=== PATIENT | female | born 1935 | race Caucasian/White ===

== ENCOUNTER → 2019-12-19 08:20 | Outpatient (REF) | payer MEDICARE, SELFPAY ==
--- NOTE | 2019-12-19 | NM_ITS ---
Lexiscan Myocardial perfusion study Indication: Chest pressure, shortness of breath, coronary disease, assess for ischemia Technique: The patient was brought in for a Lexiscan perfusion study on 12/19/2019 and was injected 0.4 mg of Lexiscan intravenously. Within a minute of this injection 30 mCi of sestamibi was given intravenously. Images were obtained using the SPECT gamma camera interlaced with the gating device. Images were obtained in supine position. Resting perfusion study was performed on 12/20/2019. Patient was administered 30 mCi of sestamibi intravenously at rest. Images were then obtained in supine position. Total DLP 67mGy-cm. Images were processed with the software and compared side to side in short axis, horizontal long axis and vertical long axis views. Findings: Raw acquisition was reviewed. The stress perfusion study showed very small, mild perfusion defect in the mid anterior wall. Otherwise no significant perfusion abnormality. The mid anterior defect persists during CT attenuation correction. The gated study shows normal LV systolic function with calculated LVEF of 68%. LV cavity is normal in size. The gated study shows normal wall thickening and contraction of segments. Resting study shows no significant perfusion abnormality. Gating at rest reveals normal wall motion with ejection fraction at 68%. The findings are consistent with mild mid anterior perfusion defect that could be from a small area of ischemia. Impression: 1. Myocardial perfusion imaging study shows very mild, small area of reversible perfusion defect in the mid anterior wall that could be from ischemia. Could also be artifactual. Appears to be a low risk finding. 2. Gated LVEF is normal. 3. Transient ischemic dilatation not present. EKG component of the test reported separately.
--- NOTE | 2019-12-19 08:30 | CA_ITS ---
Transthoracic Echocardiogram Patient (Last, First, Middle): Izabel Ruelas Maureen Gender: Female Date of : 1935 Age: 84 Procedure Date: 12/19/2019 Procedure Type: Transthoracic Echocardiogram Location: OP Height: 157.48 cm Weight: 81.19 kg BSA: 1.82 m2 Heart Rate: bpm BP: 122 / 70 mmHg [employer]: Referring MD: Sam Guillen MD Symptoms: afib, cad, sob, Study Quality: Fair ECG Rhythm: Atrial Fibrillation Conclusions: - The left ventricular systolic function is normal. The visually estimated ejection fraction is between 55-60%. - There is moderate calcification of the aortic valve. There is mild aortic valve stenosis. There is mild aortic valve regurgitation. - There is moderate mitral annular calcification. There is mild mitral valve regurgitation. - Top normal ascending aortic size at 3.9 cm. Findings Left Ventricle Normal left ventricular cavity size. There is mildly increased left ventricular wall thickness. The left ventricular systolic function is normal. The visually estimated ejection fraction is between 55-60%. There is no evidence of regional wall motion abnormalities. Diastolic function is indeterminate on the basis of available data. Right Ventricle Normal right ventricular cavity size and systolic function. Atria The left atrium is moderately dilated. The right atrium is moderately dilated. Aortic Valve There is moderate calcification of the aortic valve. There is mild aortic valve stenosis. The peak aortic velocity is 1.83 m/s with a calculated peak gradient of 13 mmHg. The mean gradient is 7 mmHg. The aortic valve area is 1.51 cm2. There is mild aortic valve regurgitation. Mitral Valve There is moderate mitral annular calcification. There is mild mitral valve regurgitation. There is no mitral valve stenosis. Pulmonic Valve The pulmonic valve was not well visualized. There is mild pulmonic valve regurgitation. Tricuspid Valve Normal tricuspid valve structure. There is mild tricuspid valve regurgitation. The pulmonary artery systolic pressure is normal. Great Vessels Top normal ascending aortic size at 3.9 cm. Venous The inferior vena cava is mildly dilated and collapses greater than 50% with inspiration. Pericardium/Pleural There is a trivial pericardial effusion. Prior Study Comparison No significant change compared to prior study dated: 04/27/2018. Measurements 2D Linear Measurements IVSd: 1.06 0.6-0.9/0.6-1.0 cm LVIDd: 4.52 3.9-5.3/4.2-5.9 cm LVIDd Index: 2.48 2.4-3.2/2.2-3.1 cm/m2 LVIDs: 2.73 2.0-3.6 cm LVPWd: 1.10 0.7-1.1 cm Ao Root: 3.30 2.1-3.5 cm LA Diam: 4.00 2.7-3.8/3.0-4.0 cm LAIDs Index: 2.20 1.5-2.3 cm/m2 LV Mass: 213.96 67-162/88-224 g LV Mass Index: 117.56 43-95/49-115 g/m2 LVOT Diam: 2.10 3.0+(-)1.3 cm Mitral Valve MV Pk E: 0.99 MV Decel Time: 158.00 E'Lateral: 6.67 E'Medial: 6.58 E/E' Med: 15.00 E/E' Lat: 14.80 PHT: 46.00 MVA PHT: 4.78 Decel [place]: 6.25 Aortic Valve AoV Pk Alexey: 1.83 AoV Mn Alexey: 1.23 AoV VTI: 0.42 AoV Pk Grad: 13.00 Aov Mn Grad: 7.00 BLANK Cont.VTI: 1.51 LVOT LVOT Pk Alexey: 0.75 LVOT Mn Alexey: 0.50 LVOT VTI: 0.19 LVOT Pk Grad: 2.00 LVOT Mn Grad: 1.00 LVOT Diam: 2.10 LVOT Area: 3.46 Diastolic Function MV Pk E: 0.99 E'Medial: 6.58 E/E' Med: 15.00 E' Laterial: 6.67 E/E' Lat: 14.80 Tricuspid Valve TR Pk Alexey: 2.39 TR Pk Grad: 23.00 Great Vessels Aorta Ao Root-2D: 3.30 2.0-3.7 cm Ao Asc: 3.90 2.1-3.4 cm Pulmonary Valve PV Pk Alexey: 1.00 Peak PV Grad: 4.00 Updated in Other Vendor System with Status of Final Farhat Ortega MD electronically signed on 12/20/2019 12:03:08 PM with status of Final
--- NOTE | 2019-12-19 09:30 | CA_ITS ---
Acquisition Time: 2019-12-19 09:41:52 Total Exercise Time: 00:02:00 Test Indications: I25.10 CAD W/O ANGINA, Z95.5 ST Medications: SYNTHROID LIPITOR DIOVAN ATENOLOL AMLODIPINE ELIQUIS Protocol: LEXISCAN Max HR: 171 BPM 126% of Pred: 135 BPM Max BP: 136/078 mmHG Max Work Load: 1.0 METS Pharmacological stress test using Lexiscan while sitting. pt tolerated well, Denies any anginal sx. Some SOB after Brandie, resoilves in recovery. EKG with a-fib, occ. PVC's. Non-diagnostic for ischemia. Nuclear images to follow. Normotensive response to test. Test reviewed with Dr Ortega Referred By: Sam Guillen Overread By: Libra Ramos
== END ==
LOC: HO.CARD 08:20
PROVIDERS: Visit Provider Internal Medicine Cardiovascular Disease
DX: I25.10 Atherosclerotic heart disease of native coronary artery without angina pectoris (principal); I10 Essential (primary) hypertension; R06.02 Shortness of breath; R07.89 Other chest pain; Z95.5 Presence of coronary angioplasty implant and graft
CPT/HCPCS: 78452; 93017; 93306; A9500; J2785

== ENCOUNTER → 2020-01-08 09:00 | Outpatient (BNVA) | payer MEDICARE, SELFPAY | PROVIDERS: PCP Internal Medicine; Visit Provider Internal Medicine Cardiovascular Disease | DX: I25.10 Atherosclerotic heart disease of native coronary artery without angina pectoris (principal); I48.20 Chronic atrial fibrillation, unspecified; I10 Essential (primary) hypertension; E78.5 Hyperlipidemia, unspecified; Z95.5 Presence of coronary angioplasty implant and graft; Z79.899 Other long term (current) drug therapy; Z98.890 Other specified postprocedural states | CPT/HCPCS: 99212 ==

== ENCOUNTER 2020-05-26 07:56 | Outpatient (REF) | payer MEDICARE, SELFPAY ==
[2020-05-26 10:39] LABS: MANUAL DIFF FLAG NO
[2020-05-26 10:48] LABS: Basophils Percent Auto 0.5 % (0-2); Eosinophils Absolute Auto 0.1 X10*3/uL (0.0-0.4); Eosinophils Percent Auto 1.3 % (0-4); Hemoglobin 12.7 g/dl (12.0-16.0); Imm Gran Abs Auto 0.02 X10*3/uL (0.00-0.03); Imm Gran Pct Auto 0.3 % (0.0-0.4); Lymphocytes Absolute Auto 2.4 X10*3/uL (1.2-4.9); Lymphocytes Percent Auto 31.4 % (20-40); Mean Corpuscular HGB Conc 33.4 g/dl (31.0-35.0); Mean Corpuscular Hemoglobin 31.1 pg (27.0-33.0); Mean Corpuscular Volume 92.9 fL (80-98); Mean Platelet Volume 10.2 fL (9.4-12.3); Monocytes Absolute Auto 0.6 X10*3/uL (0.1-1.2); Monocytes Percent Auto 7.8 % (2-11); Neutrophils Absolute Auto 4.5 X10*3/uL (2.0-8.3); Neutrophils Percent Auto 58.7 % (45-73); Platelet Count 210 X10*3/uL (160-400); Red Blood Count 4.09 X10*6/uL (4.20-5.50); Red Cell Distribution Width 12.8 % (11.0-16.0); White Blood Count 7.6 X10*3/uL (4.8-10.8)
[2020-05-26 11:16] LABS: Glucose Urine UA NEG (NEG); Leukocyte Esterase Urine 1+ (NEG); Nitrite Urine NEG (NEG); PH 7.5 (5.0-8.0); Specific Gravity - Urine 1.015 (1.005-1.025); Urine Blood 1+ (NEG); Urine Ketones NEG (NEG); Urine Protein 2+ MG/DL (NEG-TRACE)
[2020-05-26 11:21] LABS: Appearance Urine CLEAR; Color Urine YELLOW
[2020-05-26 11:27] LABS: Alanine Aminotransferase 17 U/L (0-31); Albumin Level 4.4 g/dL (3.5-5.0); Alkaline Phosphatase 56 U/L (39-117); Anion Gap 12 (12-20); Aspartate Amino Transferase 22 U/L (5-31); Bilirubin Total 0.5 mg/dL (0.0-1.0); Blood Urea Nitrogen 15 mg/dL (9-16); Calcium 9.8 mg/dL (8.4-10.2); Carbon Dioxide 30 mmol/L (22-29); Chloride 99 mmol/L (96-108); Cholesterol 164 mg/dL; Estimated Glomerular Filt Rate 51; Glucose Fasting 106 mg/dL (60-99); HDL Cholesterol 69 mg/dL; LDL Cholesterol Calculated 80 mg/dl; Potassium 3.9 mmol/L (3.3-5.1); Sodium 137 mmol/L (135-145); Triglycerides 75 mg/dL
[2020-05-26 11:37] LABS: TSH reflex Free T4 1.57 uIU/mL (0.32-4.0)
[2020-05-26 12:43] LABS: Bacteria Urine 1+ /LPF; Hyaline Casts Urine 0-2 /LPF; RBC Urine 0 /HPF (0); Renal Epithelial Cells Urine 2+ /LPF; Squamous Epithelial Cell Urine 2+ /LPF
== END 2020-05-26 07:57 | disposition home or self-care (01) ==
LOC: HO.WFDLDS 07:56
PROVIDERS: Visit Provider Internal Medicine
DX: E78.00 Pure hypercholesterolemia, unspecified (principal); E55.9 Vitamin D deficiency, unspecified; E83.52 Hypercalcemia; I10 Essential (primary) hypertension; E03.9 Hypothyroidism, unspecified
CPT/HCPCS: 36415; 80053; 80061; 81001; 81003; 82306; 84443; 85025

== ENCOUNTER 2020-06-12 08:10 | Outpatient (REF) | payer MEDICARE, SELFPAY ==
--- NOTE | ~2020-06-12 | MM_ITS ---
EXAMINATION: BONE DENSITOMETRY CLINICAL INDICATION: Osteoporosis. COMPARISON: Previous BD dated 07/27/2011 and baseline BD dated 10/09/2007. TECHNIQUE: Using a [employer] DXA System (software version: 13.1) manufactured by [employer], dual-energy x-ray absorptiometry was performed of the lumbar spine and left hip. The images are of good technical quality. Summary results are attached. FINDINGS: AP SPINE L1-L4: Current: BMD 0.903 g/cm2, Z-score -0.9, T-score -2.3, osteopenia, 2.6% increase from previous, 15.9% increase from baseline (<5% change is not significant). Prior: BMD 0.880 g/cm2. Baseline: BMD 0.779 g/cm2. LEFT FEMUR, NECK: Current: BMD 0.616 g/cm2, Z-score -0.9, T-score -3.0, osteoporosis. Prior: BMD 0.681 g/cm2. Baseline: BMD 0.692 g/cm2. LEFT FEMUR, TOTAL: Current: BMD 0.664 g/cm2, Z-score -0.8, T-score -2.7, osteoporosis, 20.5% decrease from previous, 18.2% decrease from baseline (<5% change is not significant). Prior: BMD 0.835 g/cm2. Baseline: BMD 0.812 g/cm2. IDENTIFIED RISK FACTORS: Osteoporosis, height loss, history of fracture (adult), thiazide, menopause. HISTORY OF FRACTURE: Wrist, Rib. MEDICATIONS: Vitamin D. MM/XR DEXA axial skeleton IMPRESSION: 1. DIAGNOSIS: Osteoporosis based on the lowest T-score value of -3.0 in the femoral neck applying World Health Organization criteria. 2. 10-YEAR FRACTURE RISK PREDICTION, FRAX: Major osteoporotic fracture (clinical spine, forearm, hip or shoulder) 22.6%. Hip fracture 9.0%. 3. Treatment Recommendations: NOF guidelines recommend consideration for treatment in postmenopausal women and men age 50 and older presenting with the following: -A hip or vertebral (clinical or morphometric) fracture. -T-score less than or equal to -2.5 at the femoral neck or spine after appropriate evaluation to exclude secondary causes. -Low bone mass at the hip or spine and a 10-year fracture probability by FRAX of greater than or equal to 3% for hip fracture or greater than or equal to 20% for major osteoporotic fracture based on the [place] adapted WHO algorithm. 4. Other Recommendations: All treatment decisions require clinical judgment and consideration of individual patient factors, including patient preferences, comorbidities, previous drug use, risk factors not captured in the FRAX model (e.g. frailty, falls, vitamin D deficiency, increased bone turnover, interval significant decline in bone density) and possible under or overestimation of fracture risk by FRAX. Additional medical evaluation for secondary cause of low bone mineral density may be appropriate. FUTURE SCAN RECOMMENDATION: People with diagnosed cases of osteoporosis or at high risk for fracture should have regular bone mineral density tests. For patients eligible for Medicare, routine testing is allowed once every 2 years. The testing frequency can be increased to one year for patients who have rapidly progressing disease, those who are receiving or discontinuing medical therapy to restore bone mass, or have additional risk factors.
== END 2020-06-12 08:11 | disposition home or self-care (01) ==
LOC: HO.MAMMO 08:10
PROVIDERS: Visit Provider Internal Medicine
DX: M81.0 Age-related osteoporosis without current pathological fracture (principal); Z78.0 Asymptomatic menopausal state; Z79.899 Other long term (current) drug therapy
CPT/HCPCS: 77080

== ENCOUNTER → 2020-07-14 09:11 | Outpatient (BNVA) | payer MEDICARE, SELFPAY | PROVIDERS: PCP Internal Medicine; Visit Provider Internal Medicine Cardiovascular Disease | DX: I25.10 Atherosclerotic heart disease of native coronary artery without angina pectoris (principal); I48.20 Chronic atrial fibrillation, unspecified; I35.0 Nonrheumatic aortic (valve) stenosis | CPT/HCPCS: 93005; 99212 ==

== ENCOUNTER → 2020-08-06 09:10 | Outpatient (BNVA) | payer MEDICARE, SELFPAY | PROVIDERS: PCP Internal Medicine; Visit Provider Internal Medicine Cardiovascular Disease | DX: I48.20 Chronic atrial fibrillation, unspecified (principal); I25.10 Atherosclerotic heart disease of native coronary artery without angina pectoris; I10 Essential (primary) hypertension | CPT/HCPCS: 99212 ==

== ENCOUNTER → 2020-08-20 10:10 | Outpatient (REF) | payer MEDICARE, SELFPAY ==
--- NOTE | 2020-08-20 10:50 | ECG_ITS ---
Hook-up date: 2020-08-20 10:41:00 Duration: 28:55:00 Test Indications: chr afib Medications: 84568 QRS complexes 234 Ventricular ectopics which represent <1 % of total QRS comp. * Supraventricular ectopics which represent % of total QRS comp. * Paced QRS complexs which represent % of total QRS comp. VENTRICULAR ECTOPY 226 Isolated 0 Bigeminal Cycles 4 Couplets 0 Runs 0 Beats in Runs * Beats LONGEST at * BPM at :: -- * Beats FASTEST at * BPM at :: -- SUPRAVENTRICULAR ECTOPY * Isolated * Couplets * Runs * Beats in Runs * Beats LONGEST at * BPM at :: -- * Beats FASTEST at * BPM at :: -- HEART RATES 38 MIN at 09:02:16 2020-08-21 63 AVG 125 MAX at 17:02:54 2020-08-20 LONGEST RR 2.3760 secs at 21:47:33 2020-08-20 S-T LEVELS Channel 1 - 128 mm at 10:41:00 2020-08-20 - 128 mm at 10:41:00 2020-08-20 Channel 2 - 128 mm at 10:41:00 2020-08-20 - 128 mm at 10:41:00 2020-08-20 Channel 3 - 128 mm at 03:00:01 -- - 128 mm at 03:00:01 Basic rhythm Atrial fibrillation No significant pauses Frequent slow VR to AF, 41% of time HR < 60 bpm Occasional Premature ventricular complexes Patient did not report any symptoms in the diary Referred By: Sam Guillen Overread By: SAM GUILLEN MD
== END ==
LOC: HO.CARD 10:10
PROVIDERS: PCP Internal Medicine; Referring Provider Internal Medicine; Visit Provider Internal Medicine Cardiovascular Disease
DX: I48.20 Chronic atrial fibrillation, unspecified (principal)
CPT/HCPCS: 93226

== ENCOUNTER 2020-08-21 11:25 | Outpatient (REF) | payer MEDICARE, SELFPAY ==
--- NOTE | ~2020-08-21 | US_ITS ---
EXAMINATION: US THYROID CLINICAL INFORMATION: Thyroid nodule. COMPARISON: None TECHNIQUE: Linear transducer grayscale and color Doppler examination with attention to the region of the thyroid. FINDINGS: SIZE: Measurements of the thyroid lobes and nodules are given in sagittal, anteroposterior and transverse dimensions respectively. Right Thyroid Lobe: 3.7 x 1.5 x 1.4 cm, volume 4.1 mL. Parenchyma: The gland echotexture is homogeneous. Thyroid vascularity is normal. Left Thyroid Lobe: 4.0 x 2.1 x 1.4 cm, volume 6.2 mL. Parenchyma: The gland echotexture is homogeneous. Thyroid vascularity is normal. Isthmus: 0.3 cm in maximum AP dimension. There are multiple bilateral cystic nodules. Estimated total number of nodules greater than or equal to 1 cm: 1. the largest nodules are described as follows: 1. Location: Left inferior. Size: 1.5 x 1.4 x 1.2 cm, volume 1.3 mL. Nodule characteristics: Composition: Cystic(0). ACR TI-RADS total points: 0 ACR TI-RADS category: 1 2. Location: Left mid. Size: 0.53 x 0.41 x 0.59 cm, volume 0.07 mL. Nodule characteristics: Composition: Cystic(0). ACR TI-RADS total points: 0 ACR TI-RADS category: 1 3. Location: Right mid. Size: 0.86 x 0.62 x 1.0 cm, volume 0.28 mL. Nodule characteristics: Composition: Cystic(0). ACR TI-RADS total points: 0 ACR TI-RADS category: 1 4. Location: Right mid. Size: 0.5 x 0.36 x 0.5 cm, volume 0.05 mL. Nodule characteristics: Composition: Cystic(0). ACR TI-RADS total points: 0 ACR TI-RADS category: 1 NODES: No lymphadenopathy is seen in the tissue surrounding the thyroid gland. US/US thyroid IMPRESSION: Multiple bilateral cystic nodules. According to TI-RADS criteria, no ultrasound follow-up indicated. ACR TI-RADS RECOMMENDATION REFERENCE: Ultrasound-guided fine-needle aspiration, followup ultrasound, no further follow up. * TR1 (0 point) and TR 2 (2 points): No FNA or follow up * TR3 (3 points): FNA if more than or equal to 2.5 cm in maximum dimension, followup ultrasound in 1, 3 and 5 years if 1.5 to 2.4 cm in maximum dimension. * TR4 (4-6 points): FNA if more than or equal to 1.5 cm in maximum dimension, followup ultrasound in 1, 2, 3 and 5 years if 1 to 1.4 cm in maximum dimension. * TR5 (more than or equal to 7 points): FNA if more than or equal to 1 cm in maximum dimension, followup ultrasound every year for 5 years if 0.5 to 0.9 cm in maximum dimension. * TR3, TR4 or TR5 nodules that are below the size threshold for follow up receive no follow up.
== END 2020-08-21 11:26 | disposition home or self-care (01) ==
LOC: HO.US 11:25
PROVIDERS: Visit Provider Internal Medicine
DX: E04.1 Nontoxic single thyroid nodule (principal)
CPT/HCPCS: 76536

== ENCOUNTER 2020-08-27 08:11 | Outpatient (REF) | payer MEDICARE, SELFPAY ==
--- NOTE | ~2020-08-27 | FL_ITS ---
EXAMINATION: XR GI SERIES CLINICAL INFORMATION: Esophageal dysphagia COMPARISON: None TECHNIQUE: Routine upper GI air-contrast study was performed in upright and lying position. FINDINGS: Following oral administration of thick barium and effervescent granules there is normal propagation bolus from the oral cavity through the pharynx, esophagus into stomach without any evidence of obstruction, narrowing or stricture. The mucosal pattern of stomach, duodenal bulb and the sweep is normal. In supine lying position there is mild gastroesophageal reflux but no hiatal hernia seen. FLUOROSCOPY TIME: 2.7 minutes DOSE AREA PRODUCT: 45.905 uGy-m2 (microgray-meter squared) FL/FL upper GI series IMPRESSION: Widely patent esophagus without any intrinsic or extrinsic obstruction. Mild gastroesophageal reflux and lying position. No hiatal hernia. The stomach and duodenum is unremarkable
== END 2020-08-27 08:12 | disposition home or self-care (01) ==
LOC: HO.XRAY 08:11
PROVIDERS: Visit Provider Internal Medicine
DX: R13.10 Dysphagia, unspecified (principal)
CPT/HCPCS: 74240

== ENCOUNTER → 2020-11-17 09:20 | Outpatient (BNVA) | payer MEDICARE, SELFPAY | PROVIDERS: PCP Internal Medicine; Visit Provider Internal Medicine Cardiovascular Disease | DX: I48.20 Chronic atrial fibrillation, unspecified (principal); I25.10 Atherosclerotic heart disease of native coronary artery without angina pectoris; R42 Dizziness and giddiness; R06.02 Shortness of breath | CPT/HCPCS: 99212 ==

== ENCOUNTER → 2020-12-16 11:28 | Outpatient (REF) | payer MEDICARE, SELFPAY ==
--- NOTE | 2020-12-16 11:32 | HM_ITS ---
Conclusion: 1. Patient was monitored for total period of 2 days and 23 hours 2. Baseline rhythm was atrial fibrillation with average heart rate of 93 beats per minute with maximum heart rate of up to 170 beats per minute. 3. No significant pauses or bradycardia noted 4. Total of 24.86% of the time, ventricular rate is greater than 100 beats per minute, carton for borderline rate control 5. Total of 2829 PVCs accounting for 0.7% total burden according for rare PVCs 6. No patient reported symptoms MTDD
== END ==
LOC: HO.CARD 11:28
PROVIDERS: PCP Internal Medicine; Visit Provider Internal Medicine Cardiovascular Disease
DX: R00.1 Bradycardia, unspecified (principal); R42 Dizziness and giddiness
CPT/HCPCS: 93242

== ENCOUNTER → 2021-01-14 09:25 | Outpatient (REF) | payer MEDICARE, SELFPAY ==
--- NOTE | 2021-01-14 09:28 | CA_ITS ---
Transthoracic Echocardiogram Patient (Last, First, Middle): Izabel Ruelas Maureen Gender: Female Date of : 1935 Age: 85 Procedure Date: 01/14/2021 Procedure Type: Transthoracic Echocardiogram Location: OP Height: 157.48 cm Weight: 79.83 kg BSA: 1.81 m2 Heart Rate: bpm BP: 122 / 70 mmHg Undercover Operator: Referring MD: Sam Guillen MD Symptoms: I35.0 - Nonrheumatic aortic (valve) stenosis Study Quality: Fair ECG Rhythm: Atrial Fibrillation Conclusions: - The left ventricular systolic function is low normal. The visually estimated ejection fraction is between 50-55%. - Moderate biatrial enlargement. - Overall, suspect [id number] aortic stenosis of low gradient, low flow type. - There is mild mitral valve regurgitation. Findings Left Ventricle Normal left ventricular cavity size. There is mildly increased left ventricular wall thickness. The left ventricular systolic function is low normal. The visually estimated ejection fraction is between 50-55%. There is no evidence of regional wall motion abnormalities. Diastolic function is indeterminate on the basis of available data. Right Ventricle Normal right ventricular cavity size and systolic function. TAPSE 2.2cm. Atria Moderate biatrial enlargement. Aortic Valve There is moderate calcification of the aortic valve. The peak aortic velocity is 1.88 m/s with a calculated peak gradient of 14 mmHg. The mean gradient is 7 mmHg. The aortic valve area is 1.04 cm2. There is mild aortic valve regurgitation. Dimensionless index 0.35. Stroke volume index 22ml. Overall, suspect [id number] aortic stenosis of low gradient, low flow type. Mitral Valve There is mild mitral annular calcification. There is mild mitral valve regurgitation. There is no mitral valve stenosis. Pulmonic Valve The pulmonic valve was not well visualized. There is trace pulmonic valve regurgitation. Tricuspid Valve Normal tricuspid valve structure. There is trace tricuspid valve regurgitation. The pulmonary artery systolic pressure is normal. Great Vessels Top normal ascending aortic size at 3.9 cm. Venous The inferior vena cava is normal in size and collapses greater than 50% with inspiration. Pericardium/Pleural There is no evidence of pericardial effusion. Prior Study Comparison Changes noted compared to prior study dated: 12/19/2019. Possibly progression of aortic stenosis. However, compared to prior study, there is also decrease in stroke volume based on LVOT VTi measurement which leads to smaller calculated aortic valve area. Measurements 2D Linear Measurements IVSd: 1.24 0.6-0.9/0.6-1.0 cm LVIDd: 4.30 3.9-5.3/4.2-5.9 cm LVIDd Index: 2.38 2.4-3.2/2.2-3.1 cm/m2 LVIDs: 2.90 2.0-3.6 cm LVPWd: 1.21 0.7-1.1 cm Ao Root: 3.20 2.1-3.5 cm LA Diam: 4.70 2.7-3.8/3.0-4.0 cm LAIDs Index: 2.60 1.5-2.3 cm/m2 LV Mass: 237.16 67-162/88-224 g LV Mass Index: 131.03 43-95/49-115 g/m2 LVOT Diam: 2.00 3.0+(-)1.3 cm 2D Systolic Function EF 4C: 54.30 >55% EF 2C: 51.50 >55% EF BiP: 54.60 >55% Mitral Valve MV Pk E: 0.99 MV Decel Time: 135.00 E'Lateral: 8.70 E'Medial: 5.98 E/E' Med: 16.60 E/E' Lat: 11.40 PHT: 40.00 MVA PHT: 5.50 Decel [place]: 7.37 Aortic Valve AoV Pk Alexey: 1.88 AoV Mn Alexey: 1.26 AoV VTI: 0.39 AoV Pk Grad: 14.00 Aov Mn Grad: 7.00 BLANK Cont.VTI: 1.04 AI Pk Alexey: 4.51 AI [place]: 3.06 LVOT LVOT Pk Alexey: 0.65 LVOT Mn Alexey: 0.38 LVOT VTI: 0.13 LVOT Pk Grad: 2.00 LVOT Mn Grad: 1.00 LVOT Diam: 2.00 LVOT Area: 3.14 Diastolic Function MV Pk E: 0.99 E'Medial: 5.98 E/E' Med: 16.60 E' Laterial: 8.70 E/E' Lat: 11.40 Right Ventricle TAPSE (mm): 23.00 TVS' Alexey: 11.00 Tricuspid Valve TR Pk Alexey: 2.15 TR Pk Grad: 18.00 Great Vessels Aorta Ao Root-2D: 3.20 2.0-3.7 cm Ao Asc: 3.90 2.1-3.4 cm Pulmonary Valve PV Pk Alexey: 0.73 Peak PV Grad: 2.00 Updated in Other Vendor System with Status of Final Farhat Ortega MD electronically signed on 01/16/2021 10:53:45 AM with status of Final
== END ==
LOC: HO.CARD 09:25
PROVIDERS: PCP Internal Medicine; Visit Provider Internal Medicine Cardiovascular Disease
DX: I35.0 Nonrheumatic aortic (valve) stenosis (principal)
CPT/HCPCS: 93306

== ENCOUNTER → 2021-01-15 08:50 | Outpatient (BNVA) | payer MEDICARE, SELFPAY | PROVIDERS: PCP Internal Medicine; Visit Provider Internal Medicine Cardiovascular Disease | DX: I25.10 Atherosclerotic heart disease of native coronary artery without angina pectoris (principal); I48.20 Chronic atrial fibrillation, unspecified; I35.0 Nonrheumatic aortic (valve) stenosis; R42 Dizziness and giddiness | CPT/HCPCS: Q3014 ==

== ENCOUNTER 2021-06-09 11:49 | Outpatient (REF) | payer MEDICARE, SELFPAY ==
[2021-06-09 11:52] LABS: MANUAL DIFF FLAG NO
[2021-06-09 12:33] LABS: Basophils Percent Auto 0.3 % (0-2); Eosinophils Percent Auto 0.6 % (0-4); Hematocrit 37.7 % (37.0-47.0); Hemoglobin 12.7 g/dl (12.0-16.0); Imm Gran Abs Auto 0.03 X10*3/uL (0.00-0.03); Imm Gran Pct Auto 0.5 % (0.0-0.4); Lymphocytes Absolute Auto 1.9 X10*3/uL (1.2-4.9); Lymphocytes Percent Auto 30.2 % (20-40); Mean Corpuscular HGB Conc 33.7 g/dl (31.0-35.0); Mean Corpuscular Hemoglobin 31.8 pg (27.0-33.0); Mean Corpuscular Volume 94.3 fL (80.0-98.0); Monocytes Absolute Auto 0.6 X10*3/uL (0.1-1.2); Monocytes Percent Auto 8.9 % (2-11); Neutrophils Absolute Auto 3.7 x10*3/uL (2.0-8.3); Neutrophils Percent Auto 59.5 % (45-73); Platelet Count 226 X10*3/uL (160-400); Red Cell Distribution Width 13.1 % (11.0-16.0); White Blood Count 6.3 X10*3/uL (4.8-10.8)
[2021-06-09 13:02] LABS: Alanine Aminotransferase 19 U/L (0-31); Albumin Level 4.3 g/dL (3.5-5.0); Alkaline Phosphatase 53 U/L (39-117); Anion Gap 13 (12-20); Aspartate Amino Transferase 22 U/L (5-31); Bilirubin Total 0.8 mg/dL (0.0-1.0); Blood Urea Nitrogen 14 mg/dL (9-16); Calcium 10.3 mg/dL (8.4-10.2); Carbon Dioxide 27 mmol/L (22-29); Chloride 98 mmol/L (96-108); Cholesterol 182 mg/dL; Estimated Glomerular Filt Rate 45; Glucose Fasting 109 mg/dL (60-99); HDL Cholesterol 81 mg/dL; LDL Cholesterol Calculated 89 mg/dl; Sodium 134 mmol/L (135-145); Total Protein 6.9 g/dL (6.5-8.0); Triglycerides 62 mg/dL
[2021-06-09 13:24] LABS: TSH reflex Free T4 1.22 uIU/mL (0.32-4.0); Vitamin D 25-OH Total 31.4 ng/mL (>30)
== END 2021-06-09 11:50 | disposition home or self-care (01) ==
LOC: HO.LNP 11:49
PROVIDERS: PCP Internal Medicine; Visit Provider Internal Medicine
DX: I10 Essential (primary) hypertension (principal); E55.9 Vitamin D deficiency, unspecified; E03.9 Hypothyroidism, unspecified; E78.00 Pure hypercholesterolemia, unspecified
CPT/HCPCS: 80053; 80061; 82306; 84443; 85025

== ENCOUNTER 2021-06-30 10:54 | Outpatient (REF) | payer MEDICARE, SELFPAY ==
--- NOTE | ~2021-06-30 | FL_ITS ---
EXAMINATION: FL BARIUM SWALLOW CLINICAL INFORMATION: Dysphagia, reflux. COMPARISON: None TECHNIQUE: Barium swallow examination is performed using fluoroscopic evaluation in addition to multiple fluoroscopic spot views. The patient is imaged both upright and prone and using both thick and thin sulfate along with effervescent granules. Fluoroscopy time: 1.8 minutes DAP: 6.538 Gy-cm2 Images: 36 FINDINGS: Following intravenous administration of thick barium and barium-coated solid food, there is normal propagation of bolus from the oral cavity through the pharynx, esophagus into stomach without any evidence of obstruction, narrowing or stricture. No intraluminal filling defect or extrinsic compression seen. There is no laryngeal penetration or barium retention in the valleculae or piriform sinuses. There is mild ventral spurring at the C6-C7 disc level mildly indenting but not obstructing the posterior cervical esophageal wall. FL/FL barium swallow IMPRESSION: Unremarkable barium swallow. Mild ventral spurring at C6-C7 disc level without obstruction.
== END 2021-06-30 10:55 | disposition home or self-care (01) ==
LOC: HO.XRAY 10:54
PROVIDERS: PCP Internal Medicine; Visit Provider Otolaryngology
DX: R13.10 Dysphagia, unspecified (principal); K21.9 Gastro-esophageal reflux disease without esophagitis
CPT/HCPCS: 74220

== ENCOUNTER → 2021-07-13 10:22 | Outpatient (REF) | payer MEDICARE, SELFPAY ==
--- NOTE | 2021-07-13 10:25 | CA_ITS ---
Transthoracic Echocardiogram Patient (Last, First, Middle): Izabel Ruelas M Gender: Female Date of : 1935 Age: 85 Procedure Date: 07/13/2021 Procedure Type: Transthoracic Echocardiogram Location: OP Height: 157.48 cm Weight: 77.11 kg BSA: 1.78 m2 Heart Rate: bpm BP: 126 / 84 mmHg Pediatric Orthodontist: SEUN Referring MD: Sam Guillen MD Donkey Doctor: Sam Guillen MD Symptoms: I35.0 - Nonrheumatic aortic (valve) stenosis Study Quality: Fair ECG Rhythm: Atrial Fibrillation Conclusions: - 1. Low normal LV systolic function 2. At least moderate left atrial enlargement 3. Mild to moderate aortic stenosis with severe mitral annular calcification and mild mitral regurgitation 4. Normal RV systolic pressure 5. No gross pericardial effusion Findings Left Ventricle Normal left ventricular cavity size. There is mildly increased left ventricular wall thickness. The left ventricular systolic function is low normal. The visually estimated ejection fraction is between 50-55%. Diastolic function is indeterminate on the basis of available data. Right Ventricle Mildly increased right ventricular cavity size. There is borderline right ventricular systolic function. Atria The left atrium is moderately dilated. Interatrial shunt cannot be excluded. The right atrium is mildly dilated. Aortic Valve There is mild calcification of the aortic valve. There is mild to moderate aortic valve stenosis. There is mild aortic valve regurgitation. Mitral Valve There is mild anterior and severe posterior mitral leaflet thickening. There is severe mitral annular calcification. There is mild mitral valve regurgitation. There is no mitral valve stenosis. Pulmonic Valve The pulmonic valve was not well visualized. Tricuspid Valve Likely normal tricuspid valve structure and function. There is mild tricuspid valve regurgitation. The right ventricular systolic pressure is normal. The right ventricular systolic pressure is 12 mmHg. Normal right atrial pressure. There is no evidence of pulmonary hypertension. Great Vessels The pulmonary artery was not well visualized. There is mild dilatation of the ascending aorta measuring 4.00 cm. Venous The inferior vena cava is normal in size and collapses greater than 50% with inspiration. Pericardium/Pleural There is no evidence of pericardial effusion. Prior Study Comparison No significant change compared to prior study dated: 01/14/2021. Measurements 2D Linear Measurements IVSd: 1.30 0.6-0.9/0.6-1.0 cm LVIDd: 4.51 3.9-5.3/4.2-5.9 cm LVIDd Index: 2.53 2.4-3.2/2.2-3.1 cm/m2 LVIDs: 3.16 2.0-3.6 cm LVPWd: 1.23 0.7-1.1 cm LA Diam: 4.30 2.7-3.8/3.0-4.0 cm LAIDs Index: 2.42 1.5-2.3 cm/m2 LV Mass: 267.47 67-162/88-224 g LV Mass Index: 150.26 43-95/49-115 g/m2 LVOT Diam: 2.00 3.0+(-)1.3 cm 2D Systolic Function EF 4C: 54.00 >55% EF 2C: 56.90 >55% EF BiP: 54.70 >55% Mitral Valve MV Pk E: 0.83 MV Decel Time: 187.00 E'Lateral: 8.25 E'Medial: 7.63 E/E' Med: 10.90 E/E' Lat: 10.10 PHT: 55.00 MVA PHT: 4.00 Decel [place]: 4.43 Aortic Valve AoV Pk Alexey: 1.84 AoV Mn Alexey: 1.51 AoV VTI: 0.46 AoV Pk Grad: 14.00 Aov Mn Grad: 10.00 BLANK Cont.VTI: 1.04 LVOT LVOT Pk Alexey: 0.67 LVOT Mn Alexey: 0.51 LVOT VTI: 0.15 LVOT Pk Grad: 2.00 LVOT Mn Grad: 1.00 LVOT Diam: 2.00 LVOT Area: 3.14 Diastolic Function MV Pk E: 0.83 E'Medial: 7.63 E/E' Med: 10.90 E' Laterial: 8.25 E/E' Lat: 10.10 Right Ventricle TAPSE (mm): 16.50 TVS' Alexey: 7.27 Tricuspid Valve TR Pk Alexey: 1.53 TR Pk Grad: 9.00 RA Press: 3.00 RVSP: 12.00 Great Vessels Aorta Sinus of Valsalva: 3.58 2.0-3.[address] [place]: 3.18 1.7-3.4 cm Ao Asc: 4.00 2.1-3.4 cm Ao Arch: 3.00 Updated in Other Vendor System with Status of Final Sam Guillen MD electronically signed on 07/14/2021 1:47:56 PM with status of Final
== END ==
LOC: HO.CARD 10:22
PROVIDERS: PCP Internal Medicine; Visit Provider Internal Medicine Cardiovascular Disease
DX: I35.0 Nonrheumatic aortic (valve) stenosis (principal)
CPT/HCPCS: 93306

== ENCOUNTER → 2021-07-28 12:51 | Outpatient (BNVA) | payer MEDICARE, SELFPAY | PROVIDERS: PCP Internal Medicine; Referring Provider Internal Medicine; Visit Provider Internal Medicine Cardiovascular Disease | DX: I25.10 Atherosclerotic heart disease of native coronary artery without angina pectoris (principal); I35.0 Nonrheumatic aortic (valve) stenosis; I48.20 Chronic atrial fibrillation, unspecified; Z79.01 Long term (current) use of anticoagulants | CPT/HCPCS: 93005; 99212 ==

== ENCOUNTER → 2021-08-24 13:57 | Outpatient (BNVA) | payer MEDICARE, SELFPAY | PROVIDERS: PCP Internal Medicine; Referring Provider Internal Medicine; Visit Provider Internal Medicine Cardiovascular Disease | DX: I48.20 Chronic atrial fibrillation, unspecified (principal); I25.10 Atherosclerotic heart disease of native coronary artery without angina pectoris; I35.0 Nonrheumatic aortic (valve) stenosis; Z79.01 Long term (current) use of anticoagulants; Z79.899 Other long term (current) drug therapy | CPT/HCPCS: 99212 ==

== ENCOUNTER 2021-09-11 10:10 | Outpatient (REF) | payer MEDICARE, SELFPAY ==
[2021-09-11 11:32] LABS: Anion Gap 12 (12-20); Carbon Dioxide 26 mmol/L (22-29); Chloride 93 mmol/L (96-108); Magnesium 1.6 mg/dL (1.6-2.6); Potassium 3.8 mmol/L (3.3-5.1); Sodium 127 mmol/L (135-145)
== END 2021-09-11 10:11 | disposition home or self-care (01) ==
LOC: HO.WFDLDS 10:10
PROVIDERS: Visit Provider Internal Medicine
DX: R79.0 Abnormal level of blood mineral (principal)
CPT/HCPCS: 36415; 80051; 83735

== ENCOUNTER 2021-09-14 16:25 | Outpatient (REF) | payer MEDICARE, SELFPAY ==
[2021-09-14 17:00] LABS: Sodium 131 mmol/L (135-145)
== END 2021-09-14 16:26 | disposition home or self-care (01) ==
LOC: HO.LNP 16:25
PROVIDERS: Visit Provider Internal Medicine
DX: E87.1 Hypo-osmolality and hyponatremia (principal)
CPT/HCPCS: 84295

== ENCOUNTER 2021-10-05 07:47 | Outpatient (REF) | payer MEDICARE, SELFPAY ==
--- NOTE | ~2021-10-05 | XR_ITS ---
EXAMINATION: XR SHOULDER, LEFT CLINICAL INFORMATION: Pain. COMPARISON: None TECHNIQUE: AP neutral and scapula Y views of the left shoulder are submitted. FINDINGS: There is bony demineralization. There is a comminuted, impacted transverse fracture of the left humeral neck. There is a fracture fragment noted of the greater tuberosity. There is significant inferior subluxation of the left glenohumeral joint. The acromioclavicular and coracoclavicular intervals are normal. No foreign body is seen. There is no left pneumothorax. XR/XR shoulder LT min 2V IMPRESSION: There is an impacted, comminuted fracture noted of the left humeral neck. There is a fracture fragment noted of the greater tuberosity of the proximal left humerus. There is significant inferior subluxation of the left humeral head relative to the glenoid. A preliminary report was provided by the [facility] on 10/07/2021.
== END 2021-10-05 07:48 | disposition home or self-care (01) ==
LOC: HO.HOSX 07:47
PROVIDERS: Visit Provider Physician Assistant
DX: S42.202A Unspecified fracture of upper end of left humerus, initial encounter for closed fracture (principal)
CPT/HCPCS: 73030; 99202

== ENCOUNTER 2021-11-16 08:32 | Outpatient (REF) | payer MEDICARE, SELFPAY ==
--- NOTE | ~2021-11-16 | XR_ITS ---
EXAMINATION: XR SHOULDER, LEFT CLINICAL INFORMATION: Pain COMPARISON: Left shoulder x-rays 10/05/2021 TECHNIQUE: Two views of the left shoulder. FINDINGS: Mild interval callus formation of impacted comminuted fracture of the left humeral neck. Humeral head continues to demonstrate acceptable alignment with the glenoid fossa. There are mild to moderate degenerative changes of the right acromioclavicular joint. Visualized right-sided ribs and lung parenchyma are unremarkable. XR/XR shoulder LT min 2V IMPRESSION: Mild interval healing of left humeral neck fracture.
== END 2021-11-16 08:33 | disposition home or self-care (01) ==
LOC: HO.HOSX 08:32
PROVIDERS: Visit Provider Physician Assistant
DX: M25.512 Pain in left shoulder (principal)
CPT/HCPCS: 73030

== ENCOUNTER → 2021-11-16 08:40 | Outpatient (BNVA) | payer MEDICARE, SELFPAY | PROVIDERS: PCP Internal Medicine; Visit Provider Physician Assistant | DX: S42.202D Unspecified fracture of upper end of left humerus, subsequent encounter for fracture with routine healing (principal) | CPT/HCPCS: 99212 ==

== ENCOUNTER 2021-12-08 08:44 | Outpatient (REF) | payer MEDICARE, SELFPAY ==
[2021-12-08 12:11] LABS: Alanine Aminotransferase 21 U/L (0-31); Albumin Level 4.5 g/dL (3.5-5.0); Alkaline Phosphatase 71 U/L (39-117); Aspartate Amino Transferase 25 U/L (5-31); Bilirubin Direct 0.3 mg/dL (0.0-0.5); Bilirubin Total 0.8 mg/dL (0.0-1.0); Cholesterol 196 mg/dL; HDL Cholesterol 86 mg/dL; LDL Cholesterol Calculated 92 mg/dl; Total Protein 7.2 g/dL (6.5-8.0); Triglycerides 90 mg/dL
== END 2021-12-08 08:45 | disposition home or self-care (01) ==
LOC: HO.WFDLDS 08:44
PROVIDERS: Visit Provider Internal Medicine
DX: E78.00 Pure hypercholesterolemia, unspecified (principal)
CPT/HCPCS: 36415; 80061; 80076

== ENCOUNTER 2021-12-28 06:28 | Outpatient (REF) | payer MEDICARE, SELFPAY ==
--- NOTE | ~2021-12-28 | XR_ITS ---
EXAMINATION: XR SHOULDER, LEFT CLINICAL INFORMATION: Left shoulder pain. COMPARISON: 10/05/2021 and 11/16/2021 TECHNIQUE: Two views of the left shoulder. FINDINGS: Again noted is mildly displaced proximal humerus fracture involving the greater tuberosity and surgical neck. There is progressive healing with further maturation of bridging bone between fragments. The humeral head remains well-positioned over the glenoid. Clavicle is normal and alignment is maintained at the acromioclavicular joint. XR/XR shoulder LT min 2V IMPRESSION: * There is progressive healing of the comminuted fracture of the proximal left humerus. * No new osseous injuries.
== END 2021-12-28 06:29 | disposition home or self-care (01) ==
LOC: HO.HOSX 06:28
PROVIDERS: Visit Provider Physician Assistant
DX: M25.512 Pain in left shoulder (principal)
CPT/HCPCS: 73030; 99212

== ENCOUNTER → 2021-12-28 10:12 | Outpatient (BNVA) | payer MEDICARE, SELFPAY | PROVIDERS: PCP Internal Medicine; Visit Provider Physician Assistant | DX: S42.202D Unspecified fracture of upper end of left humerus, subsequent encounter for fracture with routine healing (principal) | CPT/HCPCS: 99212 ==

== ENCOUNTER → 2022-02-02 12:58 | Outpatient (BNVA) | payer MEDICARE, SELFPAY | PROVIDERS: PCP Internal Medicine; Referring Provider Internal Medicine; Visit Provider Internal Medicine Cardiovascular Disease | DX: I25.10 Atherosclerotic heart disease of native coronary artery without angina pectoris (principal); I48.20 Chronic atrial fibrillation, unspecified; I35.0 Nonrheumatic aortic (valve) stenosis | CPT/HCPCS: 99212 ==

== ENCOUNTER 2022-06-15 09:50 | Outpatient (REF) | payer MEDICARE, SELFPAY ==
[2022-06-15 10:36] LABS: MANUAL DIFF FLAG NO
[2022-06-15 10:41] LABS: Basophils Percent Auto 0.8 % (0-2); Eosinophils Percent Auto 0.6 % (0-4); Hematocrit 34.3 % (37.0-47.0); Hemoglobin 11.6 g/dl (12.0-16.0); Imm Gran Abs Auto 0.01 X10*3/uL (0.00-0.03); Imm Gran Pct Auto 0.2 % (0.0-0.4); Lymphocytes Absolute Auto 1.9 X10*3/uL (1.2-4.9); Lymphocytes Percent Auto 37.4 % (20-40); Mean Corpuscular HGB Conc 33.8 g/dl (31.0-35.0); Mean Corpuscular Hemoglobin 31.5 pg (27.0-33.0); Mean Corpuscular Volume 93.2 fL (80.0-98.0); Mean Platelet Volume 9.8 fL (9.4-12.3); Monocytes Absolute Auto 0.5 X10*3/uL (0.1-1.2); Monocytes Percent Auto 8.9 % (2-11); Neutrophils Absolute Auto 2.7 x10*3/uL (2.0-8.3); Neutrophils Percent Auto 52.1 % (45-73); Platelet Count 200 X10*3/uL (160-400); Red Blood Count 3.68 X10*6/uL (4.20-5.50); Red Cell Distribution Width 13.5 % (11.0-16.0); White Blood Count 5.2 X10*3/uL (4.8-10.8)
[2022-06-15 10:51] LABS: Appearance Urine Clear; Color Urine Yellow; Glucose Urine UA Negative (Negative); Leukocyte Esterase Urine Small (1+) (Negative); Nitrite Urine Negative (Negative); Specific Gravity - Urine 1.015 (1.005-1.025); UMIC TRIGGER UACC YES; Urine Blood Negative (Negative); Urine Ketones Negative (Negative); Urine Protein Trace mg/dL (Neg-Trace)
[2022-06-15 10:56] LABS: Bacteria Urine None Seen (None Seen); Hyaline Casts Urine 0-2 /LPF (0-2); RBC Urine 0-2 /HPF (0-2); Squamous Epithelial Cell Urine 0-2 /HPF (0-2); UACC Culture Trigger YES
[2022-06-15 11:27] LABS: Alanine Aminotransferase 18 U/L (0-31); Albumin Level 4.1 g/dL (3.5-5.0); Alkaline Phosphatase 62 U/L (39-117); Anion Gap 11 (12-20); Aspartate Amino Transferase 21 U/L (5-31); Bilirubin Total 0.7 mg/dL (0.0-1.0); Blood Urea Nitrogen 15 mg/dL (9-16); Calcium 9.6 mg/dL (8.4-10.2); Carbon Dioxide 27 mmol/L (22-29); Chloride 105 mmol/L (96-108); Cholesterol 176 mg/dL; Estimated Glomerular Filt Rate 51; Glucose Fasting 99 mg/dL (60-99); HDL Cholesterol 79 mg/dL; LDL Cholesterol Calculated 84 mg/dl; Potassium 4.1 mmol/L (3.3-5.1); Sodium 139 mmol/L (135-145); Total Protein 6.4 g/dL (6.5-8.0); Triglycerides 66 mg/dL
[2022-06-15 11:46] LABS: TSH reflex Free T4 1.57 uIU/mL (0.32-4.0); Vitamin D 25-OH Total 39.9 ng/mL (>30)
== END 2022-06-15 09:51 | disposition home or self-care (01) ==
LOC: HO.WFDLDS 09:50
PROVIDERS: Visit Provider Internal Medicine
DX: I10 Essential (primary) hypertension (principal); E55.9 Vitamin D deficiency, unspecified; E03.9 Hypothyroidism, unspecified; E78.00 Pure hypercholesterolemia, unspecified; R80.9 Proteinuria, unspecified
CPT/HCPCS: 36415; 80053; 80061; 81001; 82306; 84443; 85025; 87086; 87147

== ENCOUNTER → 2022-06-25 15:19 | Outpatient (REF) | payer MEDICARE, SELFPAY ==
--- NOTE | 2022-06-25 15:22 | CA_ITS ---
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 The calculated ejection fraction is 56% by biplane method. - Severe biatrial enlargement. - There is moderate aortic valve stenosis. - There is severe mitral annular calcification. There is mild to moderate mitral valve regurgitation. Findings Left Ventricle Normal left ventricular cavity size. There is mildly increased left ventricular wall thickness. The left ventricular systolic function is normal. The calculated ejection fraction is 56% by biplane method. There is no evidence of regional wall motion abnormalities. Diastolic function is indeterminate on the basis of available data. Right Ventricle Normal right ventricular cavity size and systolic function. Atria Severe biatrial enlargement. Aortic Valve There is moderate calcification of the aortic valve. There is moderate aortic valve stenosis. The mean gradient is 12 mmHg. The aortic valve area is 1.03 cm2. There is mild aortic valve regurgitation. Stroke volume index 30ml/m2. Dimensionless index 0.33. Mitral Valve There is severe mitral annular calcification. There is mild to moderate mitral valve regurgitation. There is no mitral valve stenosis. Pulmonic Valve There is mild pulmonic valve regurgitation. Tricuspid Valve There is mild tricuspid valve regurgitation. There is no evidence of pulmonary hypertension. Great Vessels There is mild dilatation of the ascending aorta measuring 3.80 cm. Venous The inferior vena cava is dilated and collapses greater than 50% with inspiration. Pericardium/Pleural There is no evidence of pericardial effusion. Prior Study Comparison No significant change compared to prior study dated: 06/13/2021. Measurements 2D Linear Measurements IVSd: 1.23 0.6-0.9/0.6-1.0 cm LVIDd: 3.35 3.9-5.3/4.2-5.9 cm LVIDd Index: 1.89 2.4-3.2/2.2-3.1 cm/m2 LVIDs: 2.33 2.0-3.6 cm LVPWd: 1.27 0.7-1.1 cm Ao Root: 3.40 2.1-3.5 cm LA Diam: 4.20 2.7-3.8/3.0-4.0 cm LAIDs Index: 2.37 1.5-2.3 cm/m2 LV Mass: 169.11 67-162/88-224 g LV Mass Index: 95.54 43-95/49-115 g/m2 LVOT Diam: 2.00 3.0+(-)1.3 cm 2D Systolic Function EF 4C: 59.40 >55% EF 2C: 55.10 >55% EF BiP: 55.70 >55% Mitral Valve MV Pk E: 1.04 MV Decel Time: 178.00 E'Lateral: 10.40 E'Medial: 7.07 E/E' Med: 14.70 E/E' Lat: 10.00 PHT: 52.00 MVA PHT: 4.23 Decel [place]: 5.87 Aortic Valve AoV Pk Alexey: 2.22 AoV Mn Alexey: 1.61 AoV VTI: 0.53 AoV Pk Grad: 20.00 Aov Mn Grad: 12.00 BLANK Cont.VTI: 1.03 LVOT LVOT Pk Alexey: 0.73 LVOT Mn Alexey: 0.50 LVOT VTI: 0.17 LVOT Pk Grad: 2.00 LVOT Mn Grad: 1.00 LVOT Diam: 2.00 LVOT Area: 3.14 Diastolic Function MV Pk E: 1.04 E'Medial: 7.07 E/E' Med: 14.70 E' Laterial: 10.40 E/E' Lat: 10.00 Right Ventricle TAPSE (mm): 22.00 TVS' Alexey: 9.00 Tricuspid Valve TR Pk Alexey: 2.47 TR Pk Grad: 24.00 RA Press: 8.00 RVSP: 32.00 Great Vessels Aorta Ao Root-2D: 3.40 2.0-3.7 cm Ao Asc: 3.80 2.1-3.4 cm Pulmonary Valve PV Pk Alexey: 1.11 Peak PV Grad: 5.00 Updated in Other Vendor System with Status of Final Farhat Ortega MD electronically signed on 06/26/2022 1:23:11 PM with status of Final
== END ==
LOC: HO.CARD 15:19
PROVIDERS: PCP Internal Medicine; Visit Provider Internal Medicine Cardiovascular Disease
DX: I35.0 Nonrheumatic aortic (valve) stenosis (principal)
CPT/HCPCS: 93306

== ENCOUNTER → 2022-07-13 12:27 | Outpatient (BNVA) | payer MEDICARE, SELFPAY | PROVIDERS: PCP Internal Medicine; Referring Provider Internal Medicine; Visit Provider Internal Medicine Cardiovascular Disease | DX: I48.20 Chronic atrial fibrillation, unspecified (principal); I25.10 Atherosclerotic heart disease of native coronary artery without angina pectoris; I10 Essential (primary) hypertension; R06.02 Shortness of breath; R42 Dizziness and giddiness; Z95.5 Presence of coronary angioplasty implant and graft; Z98.890 Other specified postprocedural states | CPT/HCPCS: 93005; 99212 ==

== ENCOUNTER 2022-07-23 10:56 | Outpatient (REF) | payer MEDICARE, SELFPAY ==
[2022-07-23 13:43] LABS: MANUAL DIFF FLAG NO
[2022-07-23 13:49] LABS: Basophils Percent Auto 0.5 % (0-2); Eosinophils Percent Auto 0.7 % (0-4); Hematocrit 36.1 % (37.0-47.0); Hemoglobin 12.1 g/dl (12.0-16.0); Imm Gran Abs Auto 0.01 X10*3/uL (0.00-0.03); Imm Gran Pct Auto 0.2 % (0.0-0.4); Lymphocytes Absolute Auto 1.8 X10*3/uL (1.2-4.9); Lymphocytes Percent Auto 30.3 % (20-40); Mean Corpuscular HGB Conc 33.5 g/dl (31.0-35.0); Mean Corpuscular Hemoglobin 31.3 pg (27.0-33.0); Mean Corpuscular Volume 93.5 fL (80.0-98.0); Mean Platelet Volume 9.9 fL (9.4-12.3); Monocytes Absolute Auto 0.5 X10*3/uL (0.1-1.2); Monocytes Percent Auto 8.4 % (2-11); Neutrophils Absolute Auto 3.5 x10*3/uL (2.0-8.3); Neutrophils Percent Auto 59.9 % (45-73); Platelet Count 234 X10*3/uL (160-400); Red Blood Count 3.86 X10*6/uL (4.20-5.50); Red Cell Distribution Width 13.5 % (11.0-16.0); White Blood Count 5.9 X10*3/uL (4.8-10.8)
[2022-07-23 14:14] LABS: Iron 100 mcg/dL (30-160); Percent Iron Saturation 32 % (15-50); Total Iron Binding Capacity 317 mcg/dL (228-428); Unsaturated Iron Binding 217 ug/dL
== END 2022-07-23 10:57 | disposition home or self-care (01) ==
LOC: HO.WFDLDS 10:56
PROVIDERS: Visit Provider Internal Medicine
DX: D64.9 Anemia, unspecified (principal)
CPT/HCPCS: 36415; 83540; 85025

== ENCOUNTER 2023-01-25 12:19 | Outpatient (AMB) | payer MEDICARE, SELFPAY ==
[2023-01-25 12:28] VITALS: BP 120/70; PULSE 73; BMI 29.8
--- NOTE | 2023-01-25 12:28 | A.OFFVIS_ITS ---
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 Present Accompanied by: Son Allergies No Known Allergies [No Known Allergies*] Allergy (Verified 12/28/21 10:33) Adhesive Bandages Allergy (Unknown, Uncoded 12/28/21 10:33) rash Medication List - Last Reconciled 01/25/23 by Sam Guillen MD amlodipine 10 mg PO DAILY apixaban (Eliquis) 5 mg PO BID aspirin (Adult Aspirin Regimen) 81 mg PO DAILY atorvastatin 40 mg PO BEDTIME cholecalciferol (vitamin D3) 25 mcg PO DAILY levothyroxine 25 mcg PO DAILY nitroglycerin 0.4 mg sublingual omeprazole 20 mg PO DAILY valsartan 40 mg PO DAILY HPI HPI Comments History of Present Illness Details Izabel comes for follow-up. She is more sedentary. She does complain of fatigue and tiredness. No worsening shortness of breath. She says when she wakes up in the middle night with the night minute she does get pressure heaviness in her chest. She was sometimes uses sublingual nitroglycerin for it. She denies any orthopnea, PND, leg edema. No prolonged palpitations irregular heartbeat. No bleeding issues or neurologic events. [facility] Medical History Aortic stenosis CAD (coronary artery disease) Chronic a-fib HTN (hypertension) Hyperlipidemia Obesity (BMI 30-39.9) Surgical History History of cardioversion Hx of cardiac cath Stented coronary artery Family History Father CVD (cardiovascular disease) Mother Cancer Diabetes Family/Other Cancer Review of Systems Const Denies chills, Denies fatigue, Denies fever(s), Denies frequent falls, Denies weakness, Denies weight gain and Denies weight loss ENT Denies dizziness Card Denies chest pain, Denies leg edema, Denies lightheadedness, Denies palpitations, Denies dyspnea, Denies dyspnea on exertion, Denies orthopnea and Denies other (loss of consciousness) Resp Denies cough, Denies dyspnea and Denies dyspnea on exertion GI Denies hematochezia and Denies change in stool character Musc Denies abnormal gait, Denies muscle weakness, Denies numbness, Denies radiating pain into limb and Denies tingling Neuro Denies abnormal gait, Denies dizziness, Denies frequent falls, Denies numbness, Denies tingling and Denies weakness Endo Denies fatigue and Denies palpitations Physical Exam Vital Signs: Last Vital Signs Pulse 73 01/25/23 12:28 BP 120/70 01/25/23 12:28 BMI result Body Mass Index 29.8 Const General: cooperative, comfortable, no acute distress, alert, awake and well groomed Nutritional Appearance: overweight Orientation/consciousness: patient oriented x3 Limitations: no limitations and ambulation with cane Neck Neck: Yes trachea midline, Yes supple and Yes no JVD Resp Effort & Inspection: normal respiratory effort Auscultation: clear to auscultation bilaterally Cardio Jugular venous distension: no JVD Rhythm: abnormal rhythm irregularly irregular Heart sounds: S1 normal heart sound present, S2 normal heart sound present and M urmur heart sound present systolic mid, decrescendo, crescendo and soft GI Auscultation: normal bowel sounds Skin General skin exam: no rashes or lesions noted Neuro General: patient oriented x3 and no focal motor deficits Extrem General: Yes no clubbing, cyanosis or edema, Yes pedal edema and Yes other (Bilateral varicosities) Psych Appearance: grossly normal Assessment & Plan Assessment & Plan (1) CAD (coronary artery disease): Code(s): I25.10 - Atherosclerotic heart disease of [place] coronary artery without angina pectoris Plan: Patient remote stenting with intermittent episodes of angina under stressful situations. She does not get any exertional symptoms. Advised to use intermittent nitroglycerin as required. Continue amlodipine as an antianginal agent. Currently on low-dose aspirin in oral anticoagulation therapy. Continue aggressive risk factor modification with high-intensity statin therapy with target goal LDL less than 70 mg/dL. Blood pressure is currently well optimized. Advised to monitor blood pressure at home maintain a log. (2) Aortic stenosis: Code(s): I35.0 - Nonrheumatic aortic (valve) stenosis Plan: Aortic stenosis which is moderate by clinical criteria as well as by last echocardiogram. Follow-up echocardiogram 6 months time. Continue aggressive v ascular risk factor modifications above. (3) Chronic a-fib: Code(s): I48.20 - Chronic atrial fibrillation, unspecified Plan: Chronic rate control atrial fibrillation. The structural changes not likely to pursue rhythm control. Continue current medications. Currently on apixaban 5 mg b.i.d. continue the same. Semi annual renal function test should be pursued. Will follow up in the clinic in 6 months time after an echocardiogram. Thank you for allowing me to partake in her care Orders: Orders Basic Metabolic Panel Today I48.20 - Chronic atrial fibrillation, unspecified Coding Level of Care Code Est Pt Level 4 (81010) Diagnoses CAD (coronary artery disease) I25.10 Aortic stenosis I35.0 Chronic a-fib I48.20
== END 2023-01-25 12:57 | disposition home or self-care (01) ==
PROVIDERS: Visit Provider Internal Medicine Cardiovascular Disease
DX: I25.10 Atherosclerotic heart disease of native coronary artery without angina pectoris (principal); I35.0 Nonrheumatic aortic (valve) stenosis; I48.20 Chronic atrial fibrillation, unspecified
CPT/HCPCS: 99214

== ENCOUNTER 2023-01-25 12:19 | Outpatient (REF) | payer MEDICARE, SELFPAY ==
[2023-01-25 14:19] LABS: Anion Gap 12 (12-20); Blood Urea Nitrogen 16 mg/dL (9-16); Calcium 10.7 mg/dL (8.4-10.2); Carbon Dioxide 27 mmol/L (22-29); Chloride 104 mmol/L (96-108); Estimated Glomerular Filt Rate 42; Glucose Random 107 mg/dL (60-115); Potassium 4.7 mmol/L (3.3-5.1); Sodium 138 mmol/L (135-145)
== END 2023-01-25 12:20 | disposition home or self-care (01) ==
LOC: HO.LAB 12:19
PROVIDERS: PCP Internal Medicine; Visit Provider Internal Medicine Cardiovascular Disease
DX: I48.20 Chronic atrial fibrillation, unspecified (principal); I25.10 Atherosclerotic heart disease of native coronary artery without angina pectoris; I35.0 Nonrheumatic aortic (valve) stenosis; Z79.899 Other long term (current) drug therapy
CPT/HCPCS: 36415; 80048; 99212

== ENCOUNTER 2023-04-28 08:23 | Outpatient (REF) | payer MEDICARE, SELFPAY ==
[2023-04-28 11:42] LABS: Calcium 10.1 mg/dL (8.4-10.2)
== END 2023-04-28 08:24 | disposition home or self-care (01) ==
LOC: HO.WFDLDS 08:23
PROVIDERS: Visit Provider Internal Medicine
DX: E83.52 Hypercalcemia (principal)
CPT/HCPCS: 36415; 82310

== ENCOUNTER 2023-06-17 09:00 | Outpatient (REF) | payer MEDICARE, SELFPAY ==
[2023-06-17 11:26] LABS: MANUAL DIFF FLAG NO
[2023-06-17 11:34] LABS: Appearance Urine Cloudy; Color Urine Dark Yellow; Glucose Urine UA Negative (Negative); Leukocyte Esterase Urine Moderate (2+) (Negative); Nitrite Urine Negative (Negative); UMIC TRIGGER UACC YES; Urine Blood Negative (Negative); Urine Ketones Trace mg/dL (Negative); Urine Protein 100 (2+) mg/dL (Neg-Trace)
[2023-06-17 11:44] LABS: Bacteria Urine 2+ (None Seen); RBC Urine 0-2 /HPF (0-2); UACC Culture Trigger YES
[2023-06-17 11:53] LABS: Basophils Percent Auto 0.3 % (0-2); Eosinophils Absolute Auto 0.1 X10*3/uL (0.0-0.4); Eosinophils Percent Auto 1.4 % (0-4); Hematocrit 34.8 % (37.0-47.0); Hemoglobin 11.8 g/dl (12.0-16.0); Imm Gran Abs Auto 0.01 X10*3/uL (0.00-0.03); Imm Gran Pct Auto 0.2 % (0.0-0.4); Lymphocytes Absolute Auto 1.3 X10*3/uL (1.2-4.9); Lymphocytes Percent Auto 23.1 % (20-40); Mean Corpuscular HGB Conc 33.9 g/dl (31.0-35.0); Mean Corpuscular Hemoglobin 31.7 pg (27.0-33.0); Mean Corpuscular Volume 93.5 fL (80.0-98.0); Mean Platelet Volume 9.9 fL (9.4-12.3); Monocytes Absolute Auto 0.5 X10*3/uL (0.1-1.2); Monocytes Percent Auto 8.7 % (2-11); Neutrophils Absolute Auto 3.8 x10*3/uL (2.0-8.3); Neutrophils Percent Auto 66.3 % (45-73); Platelet Count 263 X10*3/uL (160-400); Red Blood Count 3.72 X10*6/uL (4.20-5.50); Red Cell Distribution Width 13.6 % (11.0-16.0); White Blood Count 5.8 X10*3/uL (4.8-10.8)
[2023-06-17 12:45] LABS: TSH reflex Free T4 1.12 uIU/mL (0.32-4.0); Vitamin D 25-OH Total 36.2 ng/mL (>30)
[2023-06-17 13:35] LABS: Alanine Aminotransferase 15 U/L (0-31); Alkaline Phosphatase 59 U/L (39-117); Anion Gap 14 (12-20); Aspartate Amino Transferase 20 U/L (5-31); Bilirubin Total 0.7 mg/dL (0.0-1.0); Blood Urea Nitrogen 13 mg/dL (9-16); Calcium 10.1 mg/dL (8.4-10.2); Carbon Dioxide 24 mmol/L (22-29); Chloride 105 mmol/L (96-108); Cholesterol 168 mg/dL (<200); Estimated Glomerular Filt Rate 52; Glucose Fasting 107 mg/dL (60-99); HDL Cholesterol 71 mg/dL (>40); LDL Cholesterol Calculated 81 mg/dL (<100); Potassium 4.2 mmol/L (3.3-5.1); Sodium 139 mmol/L (135-145); Total Protein 7.1 g/dL (6.5-8.0); Triglycerides 84 mg/dL (<150)
== END 2023-06-17 09:01 | disposition home or self-care (01) ==
LOC: HO.WFDLDS 09:00
PROVIDERS: Visit Provider Internal Medicine
DX: I10 Essential (primary) hypertension (principal); E55.9 Vitamin D deficiency, unspecified; E03.9 Hypothyroidism, unspecified; E78.00 Pure hypercholesterolemia, unspecified; R82.90 Unspecified abnormal findings in urine
CPT/HCPCS: 36415; 80053; 80061; 81001; 82306; 84443; 85025; 87086; 87147

== ENCOUNTER 2023-09-26 09:27 | Outpatient (REF) | payer MEDICARE, SELFPAY ==
[2023-09-26 11:39] LABS: Sodium 137 mmol/L (135-145)
== END 2023-09-26 09:28 | disposition home or self-care (01) ==
LOC: HO.WFDLDS 09:27
PROVIDERS: Visit Provider Internal Medicine
DX: E87.1 Hypo-osmolality and hyponatremia (principal)
CPT/HCPCS: 36415; 84295

== ENCOUNTER 2023-12-22 09:01 | Outpatient (REF) | payer MEDICARE, SELFPAY ==
[2023-12-22 11:39] LABS: Alanine Aminotransferase 17 U/L (0-31); Albumin Level 4.2 g/dL (3.5-5.0); Alkaline Phosphatase 57 U/L (39-117); Aspartate Amino Transferase 21 U/L (5-31); Bilirubin Direct 0.2 mg/dL (0.0-0.5); Bilirubin Total 0.5 mg/dL (0.0-1.0); Calcium 9.9 mg/dL (8.4-10.2); Cholesterol 170 mg/dL (<200); HDL Cholesterol 83 mg/dL (>40); LDL Cholesterol Calculated 71 mg/dL (<100); Triglycerides 80 mg/dL (<150)
== END 2023-12-22 09:02 | disposition home or self-care (01) ==
LOC: HO.WFDLDS 09:01
PROVIDERS: Visit Provider Internal Medicine
DX: E83.52 Hypercalcemia (principal); E78.00 Pure hypercholesterolemia, unspecified
CPT/HCPCS: 36415; 80061; 80076; 82310

== ENCOUNTER 2023-12-29 10:49 | Outpatient (REF) | payer MEDICARE, SELFPAY ==
[2023-12-29 11:19] LABS: Sodium 138 mmol/L (135-145)
== END 2023-12-29 10:50 | disposition home or self-care (01) ==
LOC: HO.LNP 10:49
PROVIDERS: Visit Provider Internal Medicine
DX: E87.1 Hypo-osmolality and hyponatremia (principal)
CPT/HCPCS: 84295

== ENCOUNTER 2024-05-01 12:09 | Outpatient (REF) | payer MEDICARE, SELFPAY ==
[2024-05-01 12:14] LABS: MANUAL DIFF FLAG NO
[2024-05-01 12:20] LABS: Basophils Percent Auto 0.4 % (0-2); Eosinophils Percent Auto 0.4 % (0-4); Imm Gran Abs Auto 0.01 X10*3/uL (0.00-0.03); Imm Gran Pct Auto 0.2 % (0.0-0.4); Lymphocytes Absolute Auto 1.3 X10*3/uL (1.2-4.9); Lymphocytes Percent Auto 25.8 % (20-40); Mean Corpuscular Hemoglobin 27.3 pg (27.0-33.0); Mean Corpuscular Volume 85.3 fL (80.0-98.0); Mean Platelet Volume 9.9 fL (9.4-12.3); Monocytes Absolute Auto 0.6 X10*3/uL (0.1-1.2); Monocytes Percent Auto 10.7 % (2-11); Neutrophils Absolute Auto 3.2 x10*3/uL (2.0-8.3); Neutrophils Percent Auto 62.5 % (45-73); Platelet Count 274 X10*3/uL (160-400); Red Blood Count 2.93 X10*6/uL (4.20-5.50); Red Cell Distribution Width 14.1 % (11.0-16.0); White Blood Count 5.1 X10*3/uL (4.8-10.8)
[2024-05-01 12:50] LABS: Alanine Aminotransferase 16 U/L (0-31); Albumin Level 4.1 g/dL (3.5-5.0); Alkaline Phosphatase 53 U/L (39-117); Anion Gap 13 (12-20); Aspartate Amino Transferase 26 U/L (5-31); Bilirubin Total 0.4 mg/dL (0.0-1.0); Blood Urea Nitrogen 20 mg/dL (9-16); Calcium 9.7 mg/dL (8.4-10.2); Carbon Dioxide 21 mmol/L (22-29); Chloride 108 mmol/L (96-108); Estimated Glomerular Filt Rate 51; Glucose Fasting 116 mg/dL (60-99); Potassium 4.6 mmol/L (3.3-5.1); Sodium 137 mmol/L (135-145); TSH reflex Free T4 1.69 uIU/mL (0.32-4.0)
--- OUTSIDE RECORDS SUMMARY | 2024-05-01 14:49 | XMS_ITS | Patient Health Record ---
Author Organization Silverio De MD Address [address] [place], [place] [id number] Care Team Providers Care Decision Support Analyst Name Role Phone Silverio De Primary Care Provider Allergies No Known Allergies Results Component Value Reference Range Notes Comprehensive [place]. Panel Fa st (Not yet reviewed by provider) Interpretation: Performing Lab:[facility], [address] [place] [address] Notes/Report: Sodium 137 135-145 mmol/L Potassium 4.6 3.3-5.1 mmol/L Chloride 108 96-108 mmol/L Carbon Dioxide 21 22-29 mmol/L Anion Gap 13 12-20 Blood Urea Nitrogen 20 9-16 mg/dL Creatinine 1.02 0.5-1.4 mg/dL Estimated Glomerular Filt Rate 51 Chronic Kidney Disease: Estimated GFR < 60 mL/min/1.73m2 Severe Kidney Disease: Estimated GFR < 15 mL/min/1.73m2 Glucose Fasting 116 60-99 mg/dL A fasting glucose from 100-125 mg/dl is considered impaired (pre-diabetes). Calcium 9.7 8.4-10.2 mg/dL Bilirubin Total 0.4 0.0-1.0 mg/dL Aspartate Amino Transferase 26 5-31 U/L Alanine Aminotransferase 16 0-31 U/L Total Protein 7.0 6.5-8.0 g/dL Albumin Level 4.1 3.5-5.0 g/dL Alkaline Phosphatase 53 39-117 U/L TSH reflex Free T4 (Not yet reviewed by provider) Interpretation: Performing Lab:[facility], [address] [place] [phone] Notes/Report: TSH reflex Free T4 1.69 0.32-4.0 uIU/mL Complete Blood Count Auto Di ff Reviewed date:05/01/2024 12:50:44 PM Interpretation: Performing Lab:[facility], [address] [place] [phone] Notes/Report: White Blood Count 5.1 4.8-10.8 X10*3/uL Red Blood Count 2.93 4.20-5.50 X10*6/uL Hemoglobin 8.0 12.0-16.0 g/dl Hematocrit 25.0 37.0-47.0 % Mean Corpuscular Volume 85.3 80.0-98.0 fL Mean Corpuscular Hemoglobin 27.3 27.0-33.0 pg Mean Corpuscular HGB Conc 32.0 31.0-35.0 g/dl Red Cell Distribution Width 14.1 11.0-16.0 % Platelet Count 274 160-400 X10*3/uL Mean Platelet Volume 9.9 9.4-12.3 fL Neutrophils Percent Auto 62.5 45-73 % Imm Gran Pct Auto 0.2 0.0-0.4 % Lymphocytes Percent Auto 25.8 20-40 % Monocytes Percent Auto 10.7 2-11 % Eosinophils Percent Auto 0.4 0-4 % Basophils Percent Auto 0.4 0-2 % NRBC Pct Auto 0.0 0.0-0.2 /100WBC Neutrophils Absolute Auto 3.2 2.0-8.3 x10*3/uL Imm Gran Abs Auto 0.01 0.00-0.03 X10*3/uL Lymphocytes Absolute Auto 1.3 1.2-4.9 X10*3/uL Monocytes Absolute Auto 0.6 0.1-1.2 X10*3/uL Eosinophils Absolute Auto 0.0 0.0-0.4 X10*3/uL Basophils Absolute Auto 0.0 0.0-0.2 X10*3/uL NRBC Abs Auto 0.000 0.0-0.012 X10*3/uL Sodium Reviewed date:12/29/2023 12:25:36 PM Interpretation: Performing Lab:[facility], [address] [place] [phone] Notes/Report: Sodium 138 135-145 mmol/L Complete Blood Count Auto Di ff Reviewed date:06/17/2023 02:00:03 PM Interpretation: Performing Lab:[facility], [address] [place] [phone] Notes/Report: White Blood Count 5.8 4.8-10.8 X10*3/uL Red Blood Count 3.72 4.20-5.50 X10*6/uL Hemoglobin 11.8 12.0-16.0 g/dl Hematocrit 34.8 37.0-47.0 % Mean Corpuscular Volume 93.5 80.0-98.0 fL Mean Corpuscular Hemoglobin 31.7 27.0-33.0 pg Mean Corpuscular HGB Conc 33.9 31.0-35.0 g/dl Red Cell Distribution Width 13.6 11.0-16.0 % Platelet Count 263 160-400 X10*3/uL Mean Platelet Volume 9.9 9.4-12.3 fL Neutrophils Percent Auto 66.3 45-73 % Imm Gran Pct Auto 0.2 0.0-0.4 % Lymphocytes Percent Auto 23.1 20-40 % Monocytes Percent Auto 8.7 2-11 % Eosinophils Percent Auto 1.4 0-4 % Basophils Percent Auto 0.3 0-2 % NRBC Pct Auto 0.0 0.0-0.2 /100WBC Neutrophils Absolute Auto 3.8 2.0-8.3 x10*3/uL Imm Gran Abs Auto 0.01 0.00-0.03 X10*3/uL Lymphocytes Absolute Auto 1.3 1.2-4.9 X10*3/uL Monocytes Absolute Auto 0.5 0.1-1.2 X10*3/uL Eosinophils Absolute Auto 0.1 0.0-0.4 X10*3/uL Basophils Absolute Auto 0.0 0.0-0.2 X10*3/uL NRBC Abs Auto 0.000 0.0-0.012 X10*3/uL Comprehensive [place]. Panel Fa Reviewed date:06/17/2023 03:03:57 PM Interpretation: Performing Lab:[facility], [address] [place] [address] Notes/Report: Sodium 139 135-145 mmol/L Potassium 4.2 3.3-5.1 mmol/L Chloride 105 96-108 mmol/L Carbon Dioxide 24 22-29 mmol/L Anion Gap 14 12-20 Blood Urea Nitrogen 13 9-16 mg/dL Creatinine 1.01 0.5-1.4 mg/dL Estimated Glomerular Filt Rate 52 NOTE: For -[place] individuals, multiply the result by 1.210. Chronic Kidney Disease: Estimated GFR < 60 mL/min/1.73m2 Severe Kidney Disease: Estimated GFR < 15 mL/min/1.73m2 Glucose Fasting 107 60-99 mg/dL A fasting glucose from 100-125 mg/dl is considered impaired (pre-diabetes). Calcium 10.1 8.4-10.2 mg/dL Bilirubin Total 0.7 0.0-1.0 mg/dL Aspartate Amino Transferase 20 5-31 U/L Alanine Aminotransferase 15 0-31 U/L Total Protein 7.1 6.5-8.0 g/dL Albumin Level 4.0 3.5-5.0 g/dL Alkaline Phosphatase 59 39-117 U/L Lipid Panel Reviewed date:06/17/2023 03:01:22 PM Interpretation: Performing Lab:[facility], [address] [place] [phone] Notes/Report: Triglycerides 84 <150 mg/dL Desirable Triglyceride: less than 150 mg/dL Borderline High Triglyceride 150-199 mg/dL High Triglyceride: 200-499 mg/dL Very High Triglyceride: greater than or equal to 5OO mg/dL Cholesterol 168 <200 mg/dL Desirable Cholesterol: less than 200 mg/dL Borderline High Cholesterol: 200-239 mg/dL High Cholesterol: greater than 239 mg/dL LDL Cholesterol Calculated 81 <100 mg/dL Desirable LDL: less than 100 mg/dL Near Optimal/Above Optimal LDL: 110-129 mg/dL Borderline High LDL: 130-159 mg/dL High LDL: 160-189 mg/dL Very High LDL: greater than or equal to 190 mg/dL HDL Cholesterol 71 >40 mg/dL Desirable HDL: greater than 40 mg/dL Note: This HDL assay may give artificially low results in patients with liver disease. Vitamin D 25-OH Total Reviewed date:06/17/2023 02:57:14 PM Interpretation: Performing Lab:[address] [phone] Notes/Report: Vitamin D 25-OH Total 36.2 >30 ng/mL Health Based Reference Values* < 20 ng/mL Deficient 20-30 ng/mL Insufficient > 30 ng/mL Sufficient *Mary NOLAN. N Engl J Med. 2007;357:266-280 Care must be taken in interpreting Vitamin D results from different laboratories and methodologies. Published data demonstrated that results from patients undergoing hemodialysis may show a negative bias when tested with various automated 25-OH vitamin D assays when compared to LC-MS/MS. When testing samples from patients whose predominant form of Vitamin D is Vitamin D2, such as patients receiving Vitamin D2 supplementation, results that are subtherapeutic should be confirmed with another method such as LC-MS/MS. TSH reflex Free T4 Reviewed date:06/17/2023 03:02:23 PM Interpretation: Performing Lab:[address] [phone] Notes/Report: TSH reflex Free T4 1.12 0.32-4.0 uIU/mL Urine Culture Reviewed date:06/18/2023 05:15:01 PM Interpretation: Performing Lab:[address] [phone] Notes/Report: O:STRAGA Strep agalactiae (Gr p B) Urine Culture Quant Urine Culture 50,000 to 100,000 cfu/mL Urine Culture CATH MATERIALS COORDINATOR? Urine Culture Susceptibility not routinely performed on this isolate. UA ClnCatch+Micro w/rflx [place] t Reviewed date:06/17/2023 03:04:18 PM Interpretation: Performing Lab:[address] [phone] Notes/Report: Urine, Clean Catch Color Urine Dark Yellow Appearance Urine Cloudy PH 6.0 5.0-9.0 Glucose Urine UA Negative Negative mg/dL Urine Blood Negative Negative Specific [place] - Urine 1.020 1.005-1.025 Urine Protein 100 (2+) Neg-Trace mg/dL Urine Ketones Trace Negative mg/dL Nitrite Urine Negative Negative Leukocyte Esterase Urine Moderate (2+) Negative RBC Urine 0-2 0-2 /HPF WBC Urine 11-20 0-5 /HPF Squamous Epithelial Cell Urine 11-20 0-2 /HPF Bacteria Urine 2+ None Seen Hyaline Casts Urine 11-20 0-2 /LPF Sodium Reviewed date:09/26/2023 12:33:21 PM Interpretation: Performing Lab:[facility], [address] [place] [phone] Notes/Report: Sodium 137 135-145 mmol/L Calcium Reviewed date:12/22/2023 05:15:03 PM Interpretation: Performing Lab:[facility], [address] [place] [phone] Notes/Report: Calcium 9.9 8.4-10.2 mg/dL Lipid Panel Reviewed date:12/22/2023 09:16:00 PM Interpretation: Performing Lab:[facility], [address] [place] [phone] Notes/Report: Triglycerides 80 <150 mg/dL Desirable Triglyceride: less than 150 mg/dL Borderline High Triglyceride 150-199 mg/dL High Triglyceride: 200-499 mg/dL Very High Triglyceride: greater than or equal to 5OO mg/dL Cholesterol 170 <200 mg/dL Desirable Cholesterol: less than 200 mg/dL Borderline High Cholesterol: 200-239 mg/dL High Cholesterol: greater than 239 mg/dL LDL Cholesterol Calculated 71 <100 mg/dL Desirable LDL: less than 100 mg/dL Near Optimal/Above Optimal LDL: 110-129 mg/dL Borderline High LDL: 130-159 mg/dL High LDL: 160-189 mg/dL Very High LDL: greater than or equal to 190 mg/dL HDL Cholesterol 83 >40 mg/dL Desirable HDL: greater than 40 mg/dL Note: This HDL assay may give artificially low results in patients with liver disease. Yariel Young Reviewed date:05/01/2024 12:34:53 PM Interpretation: Performing Lab:[facility], [address] [place] [phone] Notes/Report: Yariel Yougn See Note Specimen held untested for 24 hours; Call to request Chemistry testing. Reason For Referral Reason please blu guillermo Diagnosis 1 Persistent atrial fi brillation (I48.19) Referral Organization Silverio De MD Referring Provider First Name Silverio Referring Provider Last Name Santino Referring Provider Speciality Internal M edicine Referred Provider Sam Guillen Referred Provider Specialty Cardiovascul ar Disease General Notes Gus, Nancy 0 05/01/2024 09:44:43 AM >patient and family are aware of appt Referral Priority Routine Referral Appointment Date 05/08/2024 Medications Medication SIG (Take, Route, Frequency, Duration) Notes Start Date End Date Status tiZANidine HCl 2 MG 1 tablet at bedtime as needed Orally Once a day for 90 days Active Omeprazole 20 MG TAKE 1 CAPSULE BY MOUTH EVERY DAY for 90 Active amLODIPine Besylate 10 MG TAKE 1 TABLET BY MOUTH EVERY DAY for 90 Active Tylenol Arthritis Pain 650 MG 2 tablets as needed Orally every 8 hrs Active Furosemide 20 MG 1 tablet Orally Once a day for 30 days Not-Taking Vitamin D (Ergocalciferol) 1000 1 capsule Orally once a day 06/10/2014 Active Aspir-Low 81 MG 1 tablet Orally Once a day for 30 day(s) Not-Taking Valsartan 320 MG TAKE 1 TABLET BY AHMET TH EVERY DAY Active Ocuvite Eye + Multi - as directed Orally Active Eliquis 5 MG as directed Orally Twice a day Active traMADol HCl 50 MG 1 tablet as needed Orally every 8 hours as needed for 10 days 09/01/2023 Not-Taking Nitrostat 0.4 MG as directed Sublingu al every 5 mins times 3 for chest pain for 7 Active Levothyroxine Sodium 25 MCG TAKE 1 TABLET BY MOUTH EVERY DAY Orally Once a day for 90 days Active Isosorbide Mononitrate ER 30 MG 1 tablet in the morning Orally Once a day for 30 day(s) Not-Taking Atorvastatin Calcium 40 MG TAKE 1 TABLET BY MOUTH EVERY DAY for 90 Active Ventolin HFA * 108 (90 Base) MCG/ACT 2 puffs as needed Inhalation every 4 hrs for 30 day(s) 11/26/2014 Not-Taking Immunizations Vaccine Route Administration Date Status Comme nts Flu Vaccine IM Intramuscular 11/23/2010 Administered Flu Vaccine Unknown 12/23/2011 Administered Prevnar 13 IM Intramuscular 04/03/2012 Administered PPSV23 (Pnemovax) Unknown 04/03/2012 Administered Flu Vaccine IM Intramuscular 11/14/2012 Administered Flu Vaccine IM Intramuscular 02/11/2014 Administered zFluzone Quadrivalent IM Intramuscular 02/18/2015 Administered Fluarix Quadrivalent IM Intramuscular 12/23/2015 Administe red Fluarix Quadrivalent IM Intramuscular 01/03/2017 Administe red PPSV23 (Pnemovax) IM Intramuscular 05/10/2017 Administered Fluarix Quadrivalent Unknown 12/28/2017 Administered CV S TDaP IM Intramuscular 08/02/2018 Administered pt was given the vaccine at [facility] in [place]. Fluarix Quadrivalent IM Intramuscular 11/27/2018 Administe red Influenza High Dose Unknown 01/22/2020 Administered [facility] SARS-COV-2 Pfizer Unknown 05/31/2020 Administered SARS-COV-2 Pfizer Unknown 06/21/2020 Administered Influenza High Dose IM Intramuscular 12/04/2020 Administer ed Influenza High Dose IM Intramuscular 12/15/2021 Administer ed Influenza High Dose IM Intramuscular 12/29/2023 Administer ed Social History Tobacco Use: Social History Observation Description Date Details (start date - stop date) Never Smoker NA - NA Tobacco Use/Smoking Question Answer Notes Patient is a nonsmoker Additional Findings: Tobacco Non-User Cu rrent non-smoker, currently using no form of tobacco Alcohol Screen Question Answer Notes Did you have a drink containing alcohol in the p ast year? No Points 0 Interpretation Negative Problems Problem Type SNOMED Code ICD Code Onset Dates Problem Status W/U Status Risk Notes Problem Transient ischemic attack (487840726) TIA (transient ischemic attack) (435.9) Active confirmed Problem 885321848 Thyroid nodule (E04.1) Active confirmed Problem 265596910 TIA (transient ischemic attack) (G45.9) Active confirmed Problem 252559383 Reflux esophagit is (K21.00) Active confirmed Problem Constipation (74443136) Constipation (K59.00) Active confirmed Problem 22420423 Vitamin D defici ency (E55.9) Active confirmed Problem Dysphagia (63816504) Dysphagia (R13.10) Active confirmed Problem 204194043 Paroxysmal atria l fibrillation (I48.0) Active confirmed Problem 47121867 Hypercalcemia (E83.52) Active confirmed Problem 880131027 Persistent atria l fibrillation (I48.1) Active confirmed Problem 59088270 Vitiligo (L80) Active confirmed Problem 30583131 Other osteoporos is without current pathological fracture (M81.8) Active confirmed Problem 2-part displaced fracture of surgical neck of left humerus, subsequent encounter for fracture with delayed healing (S42.222G) Active confirmed Problem 57925677 Essential hypertension (I10) Active confirmed Problem 518160805 Acquired hypothyroidism (E03.9) Active confirmed Problem 376328495 Chronic systolic congestive heart failure (I50.22) Active confirmed Problem 39449212 Osteoporosis (M81.0) Active confirmed Problem 24330871 Heart murmur (R01.1) Active confirmed Problem 16226763 Memory loss (R41.3) Active confirmed Problem 042679995 History of hemat uria (Z87.448) Active confirmed Problem 5644421046402 Atherosclerosis of [place] coronary artery of [place] heart without angina pectoris (I25.10) Active confirmed Problem 5915837 Post herpetic neuralgia (B02.29) Active confirmed Problem Pure hypercholesterolemia (447326072) Elevated LDL cholesterol level (E78.00) Active confirmed Problem 235009590 Pure hypercholesterolemia (E78.00) Active confirmed Problem 17210025 Proteinuria, unspecified type (R80.9) Active confirmed Problem 663264716 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) Active confirmed Problem 399512193 History of lymph shaun (Z85.79) Active confirmed Problem 48949204 Esophageal dysph agia (R13.10) Active confirmed Problem 405592776 Other persistent atrial fibrillation (I48.19) Active confirmed Problem 108404212 Persistent atria l fibrillation (I48.19) Active confirmed Vital Signs Blood pressure diastolic 70 mm Hg 05/01/2024 mka ght is down 3 pounds since 03-30-24 Height 62.5 in 05/01/2024 weight is down 3 pounds since 03-30-24 Blood pressure systolic 112 mm Hg 05/01/2024 weig ht is down 3 pounds since 03-30-24 Weight 169 lbs 05/01/2024 weight is down 3 pounds since 03-30-24 BMI 30.41 kg/m2 05/01/2024 weight is down 3 pounds since 03-30-24 Encounters Encounter Location Date Provider Diagnosis Silverio De MD [address] [place], [place] [id number] 05/01/2024 Silverio De Heart murmur R01.1 ; Persistent atrial fibrillation I48.1 ; Post herpetic neuralgia B02.29 ; Acquired hypothyroidism E03.9 and Weakness R53.1 Silverio De MD [address] [place] [id number] 06/27/2023 Silverio De Essential hypertensi on I10 ; Memory loss R41.3 ; Persistent atrial fibrillation I48.19 ; Stable angina I20.89 ; Dysphagia R13.10 ; Pure hypercholesterolemia E78.00 ; Acquired hypothyroidism E03.9 and Depression screening Z13.31 Silverio De MD [address] [place] [id number] 08/04/2023 Silverio De Hyponatremia E87.1 ; Pancreatic lesion K86.9 and Impaired mobility Z74.09 Silverio De MD [address] [place] [id number] 10/04/2023 Silverio De Lumbar back pain M54 .50 and Hyponatremia E87.1 Silverio De MD [address] [place] [id number] 12/29/2023 Silverio De Post herpetic neural tabby B02.29 ; Mid back pain M54.9 ; Stable angina I20.89 ; Chronic systolic congestive heart failure I50.22 ; Hyponatremia E87.1 and Encounter for administration of vaccine Z23 Silverio De MD [address] [place] [id number] 03/30/2024 Silverio De Mid back pain M54.9 and Essential hypertension I10 Silverio De MD [address] [place] [id number] 06/27/2023 Silverio De MD [address] [place] [id number] 07/12/2023 Silverio De MD [address] [place] [id number] 07/18/2023 Silverio De MD [address] [place] [address] [id number] 07/28/2023 Silverio De MD [address] [place] [id number] 08/29/2023 Silverio De MD [address] [place] [id number] 07/11/2023 Silverio De MD [address] [place] [id number] 07/26/2023 Silverio De Acquired hypothyroid ism E03.9 and Persistent atrial fibrillation I48.19 Silverio De MD [address] [place] [address] [id number] 08/29/2023 Silverio De MD [address] [place] [id number] 08/31/2023 Silverio De MD [address] [place] [address] [id number] 09/01/2023 Silverio De MD [address] [place] [address] [id number] 09/26/2023 Silverio De MD [address] [place] [address] [id number] 09/28/2023 Silverio De MD [address] [place] [id number] 09/28/2023 Silverio De MD [address] [place] [id number] 10/18/2023 Silverio De Persistent atrial fibrillation I48.19 Silverio De MD [address] [place] [id number] 10/28/2023 Silverio De Lumbar back pain M54 .50 Silverio De MD [address] [place] [id number] 12/24/2023 Silverio De Atherosclerosis of n ative coronary artery of [place] heart without angina pectoris I25.10 Silverio De MD [address] [place] [id number] 12/28/2023 Silverio De Mid back pain M54.9 Silverio De MD [address] [place] [id number] 04/24/2024 Silverio De Assessments Encounter Date Diagnosis (ICD Code) Assessment Notes Treatment Notes Treatment Clinical Notes Section Notes 05/01/2024 Heart murmur (ICD-10 - R01.1) needs to get back to cardiology refrral back to dr guillen 05/01/2024 Persistent atrial fibrillation (ICD-10 - I48.1) rate well controlled 06/27/2023 Essential hypertensi on (ICD-10 - I10) doing well on meds, will continue current regiment 06/27/2023 Memory loss (ICD-10 - R41.3) stable 08/04/2023 Hyponatremia (ICD-10 - E87.1) lab order given to patient, pending future labs, will cntinue to monitor 08/04/2023 Pancreatic lesion (ICD-10 - K86.9) discussed with patient and son. patient states the does not want to do any evaluation 10/04/2023 Lumbar back pain (ICD-10 - M54.50) 10/04/2023 Hyponatremia (ICD-10 - E87.1) has returned to normal 12/29/2023 Post herpetic neural tabby (ICD-10 - B02.29) patient forgets that she had shingles in the area that she i s complaining about. have reexplained that the pain is the result of her shingle years ago 12/29/2023 Mid back pain (ICD-1 0 - M54.9) 03/30/2024 Mid back pain (ICD-1 0 - M54.9) consider pain management. doesn't want to at present 03/30/2024 Essential hypertensi on (ICD-10 - I10) well controlled, will continue current regiment 07/26/2023 Acquired hypothyroid ism (ICD-10 - E03.9) 10/18/2023 Persistent atrial fibrillation (ICD-10 - I48.19) 10/28/2023 Lumbar back pain (ICD-10 - M54.50) 12/24/2023 Atherosclerosis of [place] coronary artery of [place] heart without angina pectoris (ICD-10 - I25.10) 12/28/2023 Mid back pain (ICD-1 0 - M54.9) 05/01/2024 Post herpetic neural tabby (ICD-10 - B02.29) has been there for many years 06/27/2023 Persistent atrial fibrillation (ICD-10 - I48.19) is on anticoag, will continue current regiment 08/04/2023 Impaired mobility (ICD-10 - Z74.09) is able to ambulate with assistance 12/29/2023 Stable angina (ICD-1 0 - I20.89) hopefully will improve with nitro 07/26/2023 Persistent atrial fibrillation (ICD-10 - I48.19) 05/01/2024 Acquired hypothyroid ism (ICD-10 - E03.9) on very low dose thyroid and she thinks it causes her dzziness so will stop 06/27/2023 Stable angina (ICD-1 0 - I20.89) was relieved with one nitro 12/29/2023 Chronic systolic congestive heart failure (ICD-10 - I50.22) will try furosemide, will continue to monitor 05/01/2024 Weakness (ICD-10 - R53.1) 06/27/2023 Dysphagia (ICD-10 - R13.10) stable, will continue current regiment 12/29/2023 Hyponatremia (ICD-10 - E87.1) will continue to monitor, lab pending 06/27/2023 Pure hypercholesterolemia (ICD-10 - E78.00) stable, will continue current regiment 12/29/2023 Encounter for administration of vaccine (ICD-10 - Z23) flu vaccine administered 06/27/2023 Acquired hypothyroid ism (ICD-10 - E03.9) stable, will continue current regiment 06/27/2023 Depression screening (ICD-10 - Z13.31) negative screen 03/30/2024 Other rate well controlled. on anticoagulant, will continue current regiment Plan Of Treatment Pending Test Test Name Order Date Electrocardiogram (EKG) 07/21/2017 Electrocardiogram (EKG) 07/02/2016 XR GI SERIES 08/15/2020 BONE DENSITY DEXA 06/03/2020 Comprehensive [place]. Panel Fast TSH reflex Free T4 05/01/2024 US thyroid 08/12/2020 Next Appt Details Provider Name:Silverio scherer, 06/28/2024 07:45:00 AM, [address] [place] [address], [address], [place], [place], [phone], Provider Name:Silverio scherer, 06/29/2024 10:00:00 AM, [address] [place] [address], [address], [place], [place], [phone], Provider Name:Silverio Harvey ayakar, 07/19/2024 07:00:00 AM, [address] [facility], [address], [place], [phone], Provider Name:Silverio Harvey ier, 07/26/2024 10:15:00 AM, [address] [facility], [address], [place], [phone], Insurance Providers Payer Name Payer Address Payer Phone Subscriber Number Group Number Insured Name Patient Relationship to Insured Coverage Start Date Coverage End Date MEDICARE NHIC [address] [place] [address] [id number] Izabel Ruelas Self - patient is the insured MEDEX BC OF [facility] [address] [place] [phone] [id number] Izabel Ruelas Self - patient is the insured Medical (General) History Medical History History ICD Code non hodgkins lymphoma stent(bare metal) have discussed the shingles vaccine refuses colonoscopy - 2013
--- OUTSIDE RECORDS SUMMARY | 2024-05-01 14:49 | XMS_ITS ---
Author Organization Silverio De MD Address [address] [place], [place] [id number] Care Team Providers Care Video Games Mechanic Name Role Phone Silverio De Primary Care Provider [phone] Allergies No Known Allergies REASON FOR VISIT 3 MO F/U, Accompanied by her son Medications Medication SIG (Take, Route, Frequency, Duration) Notes Start Date End Date Status Furosemide 20 MG 1 tablet Orally Once a day for 30 days Not-Taking traMADol HCl 50 MG 1 tablet as needed Orally every 8 hours as needed for 10 days 09/01/2023 Active Nitrostat 0.4 MG as directed Sublingu al every 5 mins times 3 for chest pain for 7 Active Atorvastatin Calcium 40 MG TAKE 1 TABLET BY MOUTH EVERY DAY for 90 Active Levothyroxine Sodium 25 MCG TAKE 1 TABLET BY MOUTH EVERY DAY Orally Once a day for 90 days Active Ocuvite Eye + Multi - as directed Orally Active Eliquis 5 MG as directed Orally Twice a day Active tiZANidine HCl 2 MG 1 tablet at bedtime as needed Orally Once a day for 90 days Active Vitamin D (Ergocalciferol) 1000 1 capsule Orally once a day 06/10/2014 Active Tylenol Arthritis Pain 650 MG 2 tablets as needed Orally every 8 hrs Active Isosorbide Mononitrate ER 30 MG 1 tablet in the morning Orally Once a day for 30 day(s) Not-Taking Aspir-Low 81 MG 1 tablet Orally Once a day for 30 day(s) Not-Taking Valsartan 320 MG TAKE 1 TABLET BY AHMET TH EVERY DAY Active amLODIPine Besylate 10 MG TAKE 1 TABLET BY MOUTH EVERY DAY for 90 Active Ventolin HFA * 108 (90 Base) MCG/ACT 2 puffs as needed Inhalation every 4 hrs for 30 day(s) 11/26/2014 Not-Taking Omeprazole 20 MG TAKE 1 CAPSULE BY MOUTH EVERY DAY for 90 Active Vital Signs Blood pressure systolic 164 mm Hg 03/30/19 25 Blood pressure diastolic 70 mm Hg 025 Height 62.5 in 03/30/2024 Weight 172 lbs 03/30/2024 BMI 30.95 kg/m2 03/30/2024 weight is up 7 pounds since 12-29-23 Encounters Encounter Location Date Provider Diagnosis Silverio De MD [address] [place] [address] [place] [phone] 03/30/2024 Silverio De Mid back pain M54.9 and Essential hypertension I10 Assessments Encounter Date Diagnosis (ICD Code) Assessment Notes Treatment Notes Treatment Clinical Notes Section Notes 03/30/2024 Mid back pain (ICD-10 - M54.9) consider pain management. doesn't want to at present 03/30/2024 Essential hypertension (ICD-10 - I10) well controlled, will continue current regiment 03/30/2024 Other rate well controlled. on anticoagulant, will continue current regiment Plan Of Treatment Medication Medication Name Sig Start Date Stop Date Notes Eliquis 5 MG as directed Orally Twice a day tiZANidine HCl 2 MG 1 tablet at bedtime as needed Orally Once a day for 90 days Valsartan 320 MG TAKE 1 TABLET BY MOUTH EVERY DAY Treatment Notes Assessment Notes Mid back pain consider pain manage ment. doesn't want to at present Essential hypertension well controlled, will continue current regiment Other rate well controlled . on anticoagulant, will continue current regiment Next Appt Details Provider Name:Silverio scherer, 06/28/2024 07:45:00 AM, [address] [place] [address], [address], [place], [place], [phone], Provider Name:Silverio scherer, 06/29/2024 10:00:00 AM, [address] [place] [address], [address], [place], [place], [phone], Provider Name:Silverio Harvey ier, 07/19/2024 07:00:00 AM, [address], [address], [place], [phone], Provider Name:Silverio Harvey ier, 07/26/2024 10:15:00 AM, [address], [address], [place], [phone], Progress Notes * Izabel RUELAS MDOB:[birth year] (88 yo F)Acc No.[id number]:03/30/2024 Progress Notes Patient:?Izabel RUELAS M Provider:?Silverio De MD :1935???Age:88 Y???Sex:Female D ate:03/30/2024 Address:[address] [place] [address] [id number] Subjective: * Chief Complaints: * ???3 MO F/UAccompanied by he r son * HPI: ???Symptom(s):?patient is a 88 yo female here for 3 ponth follow up visit, still having pain from area of shingles. is main complaint. * ROS:?General/Constitutional:?Denies?Chills.?Denies?Fatigue.?Denies?Fever.?Denies?Headache.?ENT:?Patient denies?decreased sense of smell, any loss of taste, sore throat.?Denies?Sore throat.?Respiratory:?Denies?Cough.?Denies?Shortness of breath at rest.?Denies?Shortness of breath with exertion.?Cardiovascular:?Denies?Chest pain at rest.?Denies?Chest pain with exertion.?Denies?Dizziness.?Denies?Palpitations.?Gastrointestinal:?Denies?Diarrhea.?Denies?Nausea.?Musculoskeletal:?Patient denies?muscle aches.?Peripheral Vascular:?Patient denies?red and blue toes.? * Medical History:? * Surgical History:? * Hospitalization/Major Diagno stic Procedure:? * Medications:?TakingOcuvite E ye + Multi - Tablet as directed Orally Tylenol Arthritis Pain 650 MG Tablet Extended Release 2 tablets as needed Orally every 8 hrs Vitamin D (Ergocalciferol) 1000 Capsule 1 capsule Orally once a day Levothyroxine Sodium 25 MCG Tablet TAKE 1 TABLET BY MOUTH EVERY DAY Orally Once a day Atorvastatin Calcium 40 MG Tablet TAKE 1 TABLET BY MOUTH EVERY DAY Valsartan 320 MG Tablet TAKE 1 TABLET BY MOUTH EVERY DAY traMADol HCl 50 MG Tablet 1 tablet as needed Orally every 8 hours as needed Eliquis 5 MG Tablet as directed Orally Twice a day Nitrostat 0.4 MG Tablet Sublingual as directed Sublingual every 5 mins times 3 for chest pain tiZANidine HCl 2 MG Tablet 1 tablet at bedtime as needed Orally Once a day Omeprazole 20 MG Capsule Delayed Release TAKE 1 CAPSULE BY MOUTH EVERY DAY amLODIPine Besylate 10 MG Tablet TAKE 1 TABLET BY MOUTH EVERY DAY Taking Ocuvite Eye + Multi - Tablet as directed Orally Taking Tylenol Arthritis Pain 650 MG Tablet Extended Release 2 tablets as needed Orally every 8 hrs Taking Vitamin D (Ergocalciferol) 1000 Capsule 1 capsule Orally once a day Taking Levothyroxine Sodium 25 MCG Tablet TAKE 1 TABLET BY MOUTH EVERY DAY Orally Once a day Taking Atorvastatin Calcium 40 MG Tablet TAKE 1 TABLET BY MOUTH EVERY DAY Taking Valsartan 320 MG Tablet TAKE 1 TABLET BY MOUTH EVERY DAY Taking traMADol HCl 50 MG Tablet 1 tablet as needed Orally every 8 hours as needed Taking Eliquis 5 MG Tablet as directed Orally Twice a day Taking Nitrostat 0.4 MG Tablet Sublingual as directed Sublingual every 5 mins times 3 for chest pain Taking tiZANidine HCl 2 MG Tablet 1 tablet at bedtime as needed Orally Once a day Taking Omeprazole 20 MG Capsule Delayed Release TAKE 1 CAPSULE BY MOUTH EVERY DAY Taking amLODIPine Besylate 10 MG Tablet TAKE 1 TABLET BY MOUTH EVERY DAY Not-Taking/PRNFurosemide 20 MG Tablet 1 tablet Orally Once a day Aspir-Low 81 MG Tablet Delayed Release 1 tablet Orally Once a day Isosorbide Mononitrate ER 30 MG Tablet Extended Release 24 Hour 1 tablet in the morning Orally Once a day Ventolin HFA * 108 (90 Base) MCG/ACT Aerosol Solution 2 puffs as needed Inhalation every 4 hrs Medication List reviewed and reconciled with the patientNot-Taking/PRN Furosemide 20 MG Tablet 1 tablet Orally Once a day Not-Taking/PRN Aspir-Low 81 MG Tablet Delayed Release 1 tablet Orally Once a day Not-Taking/PRN Isosorbide Mononitrate ER 30 MG Tablet Extended Release 24 Hour 1 tablet in the morning Orally Once a day Not-Taking/PRN Ventolin HFA * 108 (90 Base) MCG/ACT Aerosol Solution 2 puffs as needed Inhalation every 4 hrs Medication List reviewed and reconciled with the patient * Allergies:?N.K.D.A.yes[Aller gies Verified] Objective: * Vitals:?Ht: 62.5, Wt: 172, B TX:30.95, BP:164/70, Repeat BP:110/70, Wt-k.02. weight is up 7 pounds since 12-29-23. * Examination: ???General Examination: ?GENERAL APPEARANCE:?alert, well hydrated, in no distress.?HEAD:?normocephalic.?SKIN:?good turgor.?HEART:?no murmurs, rubs, gallops, regular rate and rhythm.?LUNGS:?no wheezes, rales, rhonchi, good air movement, clear to auscultation bilaterally.? Assessment: * Assessment: 1.?Mid back pain - M54.9 (Pr imary)???2.?Essential hypertension - I10??? Plan: * Treatment: 2.?Essential hypertension? Continue Valsartan Tablet, 320 MG, TAKE 1 TABLET BY MOUTH EVERY DAY.?? Notes: well controlled, will continue current regiment?? 3.?Others? Continue Eliquis Tablet, 5 MG, as directed, Orally, Twice a day.?? Notes: rate well controlled. on anticoagulant, will continue current regiment?? * Procedure Codes:?G2211 Compl ex e/m visit add on * * Sign off status: Completed true * Provider:?Silverio De MD Date:?0 03/30/2024 Generated for Isa phillips/Bernice/Tianaitting on:?05/01/2024 02:49 PM EST History and Physical Notes * HPI (History of Present Illness) Category Sub-Category Detail Notes Category Not es Symptom(s) patient is a 88 yo female here for 3 ponth follow up visit, still having pain from area of shingles. is main complaint. Examination Category Sub-Category Detail Notes Category Not es General Examination GENERAL APPEARANCE: alert, w ell hydrated, in no distress HEAD: normocephalic HEART: no murmurs, rubs, ga llops, regular rate and rhythm LUNGS: no wheezes, rales, r honchi, good air movement, clear to auscultation bilaterally SKIN: good turgor
--- OUTSIDE RECORDS SUMMARY | 2024-05-01 14:49 | XMS_ITS ---
Author Organization Silverio De MD Address [address] [place], [place] [phone] Care Team Providers Care Ornamental Metal Worker Apprentice Name Role Phone Silverio De Primary Care Provider Allergies No Known Allergies Results Component Value Reference Range Notes Comprehensive [place]. Panel Fa st (Not yet reviewed by provider) Interpretation: Performing Lab:[facility], [address] [place] [phone] Notes/Report: Sodium 137 135-145 mmol/L Potassium 4.6 [...] (Not yet reviewed by provider) Interpretation: Performing Lab:[facility], [address] [place] [phone] Notes/Report: TSH reflex Free T4 1.69 0.32-4.0 uIU/mL Complete Blood Count Auto Di ff Reviewed date:05/01/2024 12:50:44 PM Interpretation: Performing Lab:[facility], [address] [place] [phone] Notes/Report: White Blood Count 5.1 4.8-10.8 X10*3/uL [...] 0.0-0.2 /100WBC Neutrophils Absolute Auto 3.2 2.0-8.3 x10*3/u L Imm Gran Abs Auto 0.01 0.00-0.03 X10*3/uL Lymphocytes Absolute Auto 1.3 1.2-4.9 X10*3/u L Monocytes Absolute Auto 0.6 0.1-1.2 X10*3/uL Eosinophils Absolute Auto 0.0 0.0-0.4 X10*3/u L Basophils Absolute Auto 0.0 0.0-0.2 X10*3/uL NRBC Abs Auto 0.000 0.0-0.012 X10*3/uL Reason For Referral Reason please mega and jason t Diagnosis 1 Persistent atrial fi brillation (I48.19) Referral Organization Silverio De MD Referring Provider First Name Silverio Referring Provider Last Name Santino Referring Provider Speciality Internal M edicine Referred Provider Sam Guillen Referred Provider Specialty Cardiovascul ar Disease General Notes Nancy Weber 0 05/01/2024 09:44:43 AM >patient and family are aware of appt Referral Priority Routine Referral Appointment Date 05/08/2024 REASON FOR VISIT DIZZY SPELLS and SOB, Patient had stopped her Levothyroxine Medications Medication SIG (Take, Route, Frequency, Duration) Notes Start Date End Date Status Furosemide 20 MG 1 tablet Orally Once a day for 30 days Not-Taking Aspir-Low 81 MG 1 tablet Orally Once a day for 30 day(s) Not-Taking Eliquis 5 MG as directed Orally Twice a day Active Isosorbide Mononitrate ER 30 MG 1 tablet in the morning Orally Once a day for 30 day(s) Not-Taking Ventolin HFA * 108 (90 Base) MCG/ACT 2 puffs as needed Inhalation every 4 hrs for 30 day(s) 11/26/2014 Not-Taking Valsartan 320 MG TAKE 1 TABLET BY AHMET TH EVERY DAY Active Nitrostat 0.4 MG as directed Sublingu al every 5 mins times 3 for chest pain for 7 Active tiZANidine HCl 2 MG 1 tablet at bedtime as needed Orally Once a day for 90 days Active Omeprazole 20 MG TAKE 1 CAPSULE BY MOUTH EVERY DAY for 90 Active amLODIPine Besylate 10 MG TAKE 1 TABLET BY MOUTH EVERY DAY for 90 Active Tylenol Arthritis Pain 650 MG 2 tablets as needed Orally every 8 hrs Active Vitamin D (Ergocalciferol) 1000 1 capsule Orally once a day 06/10/2014 Active traMADol HCl 50 MG 1 tablet as needed Orally every 8 hours as needed for 10 days 09/01/2023 Not-Taking Levothyroxine Sodium 25 MCG TAKE 1 TABLET BY MOUTH EVERY DAY Orally Once a day for 90 days Active Atorvastatin Calcium 40 MG TAKE 1 TABLET BY MOUTH EVERY DAY for 90 Active Ocuvite Eye + Multi - as directed Orally Active Vital Signs Blood pressure systolic 112 mm Hg 05/01/19 25 Blood pressure diastolic 70 mm Hg 025 Height 62.5 in 05/01/2024 Weight 169 lbs 05/01/2024 BMI 30.41 kg/m2 05/01/2024 weight is down 3 pounds [facility] e 03-30-24 Encounters Encounter Location Date Provider Diagnosis Silverio De MD [address] [place], [place] [phone] 05/01/2024 Silverio De Heart murmur R01.1 ; Persistent atrial fibrillation I48.1 ; Post herpetic neuralgia B02.29 ; Acquired hypothyroidism E03.9 and Weakness R53.1 Assessments Encounter Date Diagnosis (ICD Code) Assessment Notes Treatment Notes Treatment Clinical Notes Section Notes 05/01/2024 Heart murmur (ICD-10 - R01.1) needs to get back to cardiology refrral back to dr guillen, pending multiple labs 05/01/2024 Persistent atrial fibrillation (ICD-10 - I48.1) rate well controlled, will continue current regiment 05/01/2024 Post herpetic neuralgia (ICD-10 - B02.29) has been there for many years, will continue to observe 05/01/2024 Acquired hypothyroidism (ICD-10 - E03.9) on very low dose thyroid and she thinks it causes her dzziness so will stop and will cntoinue to monitor 05/01/2024 Weakness (ICD-10 - R53.1) Plan Of Treatment Treatment Notes Assessment Notes Heart murmur needs to get back to cardiology refrral back to dr guillen, pending multiple labs Persistent atrial fibrillation rate well controlled, will continue current regiment Post herpetic neuralgia has been there f or many years, will continue to observe Acquired hypothyroidism on very low dose thyroid and she thinks it causes her dzziness so will stop and will cntoinue to monitor Pending Test Test Name Order Date Comprehensive [place]. Panel Fast TSH reflex Free T4 05/01/2024 Future Test Test Name Order Date TSH reflex Free T4 06/29/2024 Referrals Referral Date Details 05/01/2024 05/01/2024, please e vasyl and treatSam Next Appt Details Follow Up: 2 Months, Reason: Provider Name:Silverio Harvey ier, 06/28/2024 07:45:00 AM, [address], [address], [place], [phone], Provider Name:Silverio Harvey gilmer, 06/29/2024 10:00:00 AM, [address], [address], [place], [phone], Provider Name:Silverio Harvey ayakar, 07/19/2024 07:00:00 AM, [address], [address], [place], [phone], Provider Name:Silverio Harvey ayakar, 07/26/2024 10:15:00 AM, [address], [address], [place], [place], [phone], Progress Notes * Izabel RUELAS MDOB:[birth year] (88 yo F)Acc No.[id number]:05/01/2024 Progress Notes Patient:?Izabel RUELAS M Provider:?Silverio De MD :1935???Age:88 Y???Sex:Female D ate:05/01/2024 [id number] Subjective: * Chief Complaints: * ???1. DIZZY SPELLS and SOB. 2. Patient had stopped her Levothyroxine. * HPI: ???Fall Risk:?History?Have you had any falls with injury in the past year??Yes tripped on her walker coming out of the bathroom landed face down , no ER visit.?Symptom(s):? patient is a 88 yo female here with complaints of dizzy spells and SOB, stopped taking the thyroid med in january and daughter purt her back on it in april. feels like things are spinning. * ROS:?General/Constitutional:?Denies?Chills.?Denies?Fatigue.?Denies?Fever.?Denies?Headache.?ENT:?Patient denies?decreased sense of smell, any loss of taste, sore throat.?Denies?Sore throat.?Respiratory:?Denies?Cough.?Denies?Shortness of breath at rest.?Cardiovascular:?Denies?Chest pain at rest.?Denies?Chest pain with exertion.?Admits?Dizziness.?Admits?Shortness of breath.?Gastrointestinal:?Denies?Diarrhea.?Denies?Nausea.?Musculoskeletal:?Patient denies?muscle aches.?Peripheral Vascular:?Patient denies?red and blue toes.? * Medical History:?Non hodgkin s lymphoma, Stent(bare metal), Have discussed the shingles vaccine, Refuses colonoscopy - 2013. * Medications:?Taking Ocuvite Eye + Multi - Tablet as directed Orally , Taking Tylenol Arthritis Pain 650 MG Tablet Extended Release 2 tablets as needed Orally every 8 hrs , Taking Vitamin D (Ergocalciferol) 1000 Capsule 1 capsule Orally once a day , Taking Levothyroxine Sodium 25 MCG Tablet TAKE 1 TABLET BY MOUTH EVERY DAY Orally Once a day , Taking Atorvastatin Calcium 40 MG Tablet TAKE 1 TABLET BY MOUTH EVERY DAY , Taking Nitrostat 0.4 MG Tablet Sublingual as directed Sublingual every 5 mins times 3 for chest pain , Taking Omeprazole 20 MG Capsule Delayed Release TAKE 1 CAPSULE BY MOUTH EVERY DAY , Taking amLODIPine Besylate 10 MG Tablet TAKE 1 TABLET BY MOUTH EVERY DAY , Taking tiZANidine HCl 2 MG Tablet 1 tablet at bedtime as needed Orally Once a day , Taking Valsartan 320 MG Tablet TAKE 1 TABLET BY MOUTH EVERY DAY , Taking Eliquis 5 MG Tablet as directed Orally Twice a day , Not-Taking/PRN traMADol HCl 50 MG Tablet 1 tablet as needed Orally every 8 hours as needed , Not-Taking/PRN Furosemide 20 MG Tablet 1 tablet Orally Once a day , Not-Taking/PRN Aspir-Low 81 MG Tablet Delayed Release 1 tablet Orally Once a day , Not-Taking/PRN Isosorbide Mononitrate ER 30 MG Tablet Extended Release 24 Hour 1 tablet in the morning Orally Once a day , Not-Taking/PRN Ventolin HFA * 108 (90 Base) MCG/ACT Aerosol Solution 2 puffs as needed Inhalation every 4 hrs , Medication List reviewed and reconciled with the patient * Allergies:?N.K.D.A. Objective: * Vitals:?Ht: 62.5, Wt: 169, B TN:30.41, BP:112/70, Wt-k.66. weight is down 3 pounds since 03-30-24. * Examination: ???General Examination: ?GENERAL APPEARANCE:?alert, well hydrated, in no distress.?HEAD:?normocephalic.?SKIN:?good turgor.?HEART:?grade 3/6 systolic murmur at left sternal border with irregular pulse and rate 80.?LUNGS:?no wheezes, rales, rhonchi, good air movement, clear to auscultation bilaterally.? Assessment: * Assessment: 1.?Heart murmur - R01.1 (Meryl bashir)???2.?Persistent atrial fibrillation - I48.1???3.?Post herpetic neuralgia - B02.29???4.?Acquired hypothyroidism - E03.9???5.?Weakness - R53.1??? Plan: * Treatment: 2.?Persistent atrial fibrill ation? Notes: rate well controlled, will continue current regiment?? 3.?Post herpetic neuralgia? Notes: has been there for many years, will continue to observe?? 4.?Acquired hypothyroidism? Notes: on very low dose thyroid and she thinks it causes her dzziness so will stop and will cntoinue to monitor?? 5.?Others? Referral To:Sam Guillen??Cardiovascular Disease ?Reason:please eval and treat * Procedure Codes:?54989 VENIP UNCT, ROUTINE* * Follow Up:?2 Months * * The named appointment provid er may or may not be the originator of this progress note, and it is not deemed complete until electronically signed by the appointment provider. Sign off status: Pending * Provider:?Silverio De MD Date:?0 05/01/2024 Generated for Isa phillips/Bernice/Tianaitting on:?05/01/2024 02:49 PM EST History and Physical Notes * HPI (History of Present Illness) Category Sub-Category Detail Notes Category Not es Symptom(s) patient is a 88 yo female here with complaints of dizzy spells and SOB, stopped taking the thyroid med in january and daughter purt her back on it in april. feels like things are spinning Fall Risk History Have you had any falls with injury in the past year?: Yes tripped on her walker coming out of the bathroom landed face down , no ER visit Examination Category Sub-Category Detail Notes Category Not es General Examination GENERAL APPEARANCE: alert, w ell hydrated, in no distress HEAD: normocephalic HEART: grade 3/6 systolic m urmur at left sternal border with irregular pulse and rate 80 LUNGS: no wheezes, rales, r honchi, good air movement, clear to auscultation bilaterally SKIN: good turgor Consultation Request Notes Referral Date Referring Provider Referred Provider Not es 05/01/2024 Silverio De Nirav please eval and treat
--- OUTSIDE RECORDS SUMMARY | 2024-05-01 14:49 | XMS_ITS ---
Author Organization Silverio De MD Address [address] [facility] [address] [place] [phone] Care Team Providers Care Construction Executive Name Role Phone Silverio De Primary Care Provider [phone] REASON FOR VISIT Does thyroid medicine cause dizziness? Encounters Encounter Location Date Provider Diagnosis Silverio De MD [address] [place] [address] [address] [place] [phone] 04/24/2024 Silverio De Plan Of Treatment Next Appt Details Provider Name:Silverio scherer, 06/28/2024 07:45:00 AM, [address] [place] [address], [address], [phone], Provider Name:Silverio scherer, 06/29/2024 10:00:00 AM, [address] [place] [address], [address], [phone], Provider Name:Silverio scherer, 07/19/2024 07:00:00 AM, [address] [place] [address], [address], [phone], Provider Name:Silverio scherer, 07/26/2024 10:15:00 AM, [address] [place] [address], [address], [phone], Progress Notes * Izabel RUELAS MDOB:[birth year] (88 yo F)Acc No.[id number]:04/24/2024 Patient:?Guillermo RUELASce Nathaniel :1935???Age:88 Y???Sex:Female [facility] [place] [address] * true * Date:? Generated for Isa phillips/Bernice/eTransmitting on:?05/01/2024 02:49 PM EST
== END 2024-05-01 12:10 | disposition home or self-care (01) ==
LOC: HO.LNP 12:09
PROVIDERS: Visit Provider Internal Medicine
DX: R01.1 Cardiac murmur, unspecified (principal)
CPT/HCPCS: 80053; 84443; 85025

== ENCOUNTER 2024-05-07 12:57 | Outpatient (REF) | payer MEDICARE, SELFPAY ==
[2024-05-07 12:59] LABS: MANUAL DIFF FLAG NO
[2024-05-07 13:06] LABS: Basophils Percent Auto 0.8 % (0-2); Eosinophils Percent Auto 0.4 % (0-4); Hematocrit 29.5 % (37.0-47.0); Hemoglobin 9.3 g/dl (12.0-16.0); Imm Gran Abs Auto 0.02 X10*3/uL (0.00-0.03); Imm Gran Pct Auto 0.4 % (0.0-0.4); Lymphocytes Absolute Auto 1.7 X10*3/uL (1.2-4.9); Lymphocytes Percent Auto 31.5 % (20-40); Mean Corpuscular HGB Conc 31.5 g/dl (31.0-35.0); Mean Corpuscular Hemoglobin 26.6 pg (27.0-33.0); Mean Corpuscular Volume 84.3 fL (80.0-98.0); Mean Platelet Volume 9.6 fL (9.4-12.3); Monocytes Absolute Auto 0.6 X10*3/uL (0.1-1.2); Monocytes Percent Auto 11.5 % (2-11); Neutrophils Absolute Auto 2.9 x10*3/uL (2.0-8.3); Neutrophils Percent Auto 55.4 % (45-73); Platelet Count 281 X10*3/uL (160-400); Red Cell Distribution Width 14.7 % (11.0-16.0); White Blood Count 5.3 X10*3/uL (4.8-10.8)
--- OUTSIDE RECORDS SUMMARY | 2024-05-07 15:11 | XMS_ITS ---
Author Organization Silverio De MD Address [address] [place], [place] [id number] Care Team Providers Care Vending Supervisor Name Role Phone Silverio De Primary Care Provider Allergies No Known Allergies Results Component Value Reference Range Notes Complete Blood Count Auto Di ff (Not yet reviewed by provider) Interpretation: Performing Lab:[facility], [address] [place] [phone] Notes/Report: White Blood Count 5.3 4.8-10.8 X10*3/uL Red Blood Count 3.50 4.20-5.50 X10*6/uL Hemoglobin 9.3 12.0-16.0 g/dl Hematocrit 29.5 37.0-47.0 % Mean Corpuscular Volume 84.3 80.0-98.0 fL Mean Corpuscular Hemoglobin 26.6 27.0-33.0 pg Mean Corpuscular HGB Conc 31.5 31.0-35.0 g/dl Red Cell Distribution Width 14.7 11.0-16.0 % Platelet Count 281 160-400 X10*3/uL Mean Platelet Volume 9.6 9.4-12.3 fL Neutrophils Percent Auto 55.4 45-73 % Imm Gran Pct Auto 0.4 0.0-0.4 % Lymphocytes Percent Auto 31.5 20-40 % Monocytes Percent Auto 11.5 2-11 % Eosinophils Percent Auto 0.4 0-4 % Basophils Percent Auto 0.8 0-2 % NRBC Pct Auto 0.0 0.0-0.2 /100WBC Neutrophils Absolute Auto 2.9 2.0-8.3 x10*3/u L Imm Gran Abs Auto 0.02 0.00-0.03 X10*3/uL Lymphocytes Absolute Auto 1.7 1.2-4.9 X10*3/u L Monocytes Absolute Auto 0.6 0.1-1.2 X10*3/uL Eosinophils Absolute Auto 0.0 0.0-0.4 X10*3/u L Basophils Absolute Auto 0.0 0.0-0.2 X10*3/uL NRBC Abs Auto 0.000 0.0-0.012 X10*3/uL REASON FOR VISIT PH/TCM, Accompanied by daughter Medications Medication SIG (Take, Route, Frequency, Duration) Notes Start Date End Date Status Aspir-Low 81 MG 1 tablet Orally Once a day for 30 day(s) Not-Taking Isosorbide Mononitrate ER 30 MG 1 tablet in the morning Orally Once a day for 30 day(s) Not-Taking traMADol HCl 50 MG 1 tablet as needed Orally every 8 hours as needed for 10 days 09/01/2023 Not-Taking Furosemide 20 MG 1 tablet Orally Once a day for 30 days Not-Taking Ventolin HFA * 108 (90 Base) MCG/ACT 2 puffs as needed Inhalation every 4 hrs for 30 day(s) 11/26/2014 Not-Taking Omeprazole 20 MG TAKE 1 CAPSULE BY MOUTH EVERY DAY for 90 Active amLODIPine Besylate 10 MG TAKE 1 TABLET BY MOUTH EVERY DAY for 90 Active tiZANidine HCl 2 MG 1 tablet at bedtime as needed Orally Once a day for 90 days Active Valsartan 320 MG TAKE 1 TABLET BY AHMET TH EVERY DAY Active Eliquis 5 MG as directed Orally Twice a day Active Vitamin D (Ergocalciferol) 1000 1 capsule Orally once a day 06/10/2014 Active Levothyroxine Sodium 25 MCG TAKE 1 TABLET BY MOUTH EVERY DAY Orally Once a day for 90 days Active Tylenol Arthritis Pain 650 MG 2 tablets as needed Orally every 8 hrs Active Atorvastatin Calcium 40 MG TAKE 1 TABLET BY MOUTH EVERY DAY for 90 Active Nitrostat 0.4 MG as directed Sublingu al every 5 mins times 3 for chest pain for 7 Active Ocuvite Eye + Multi - as directed Orally Active Ferrous Sulfate Iron Active Problems Problem Type SNOMED Code ICD Code Onset Dates Problem Status W/U Status Risk Notes Problem Iron deficiency anemia (20101632) Iron deficiency anemia (D50.9) Active confirmed Vital Signs Blood pressure systolic 142 mm Hg 05/08/19 25 Blood pressure diastolic 70 mm Hg 025 Height 62.5 in 05/07/2024 Weight 166 lbs 05/07/2024 BMI 29.87 kg/m2 05/07/2024 weight is down 3 pounds [facility] e 05-01-24 Encounters Encounter Location Date Provider Diagnosis Silverio De MD [address] [place] [phone] 05/07/2024 Silverio De Iron deficiency anemia D50.9 Assessments Encounter Date Diagnosis (ICD Code) Assessment Notes Treatment Notes Treatment Clinical Notes Section Notes 05/07/2024 Iron deficiency anemia (ICD-10 - D50.9) says she would not undergo a colonoscopy Plan Of Treatment Treatment Notes Assessment Notes Iron deficiency anemia says she would no t undergo a colonoscopy Pending Test Test Name Order Date Complete Blood Count Auto Diff 5 Future Test Test Name Order Date Complete Blood Count Auto Diff 5 IRON PROFILE 06/18/2024 Next Appt Details Follow Up: 2 Months, Reason: Provider Name:Silverio scherer, 06/18/2024 07:45:00 AM, [address] [place] [address], [address], [phone], Provider Name:Silverio scherer, 06/29/2024 10:15:00 AM, [address] [place] [address], [address], [phone], Provider Name:Silverio scherer, 07/19/2024 07:00:00 AM, [address] [place] [address], [phone], Provider Name:Silverio scherer, 07/26/2024 10:15:00 AM, [address] [place] [address], [phone], Progress Notes * Izabel RUELAS MDOB:[birth year] (88 yo F)Acc No.[id number]:05/07/2024 Patient:?Izabel RUELAS Provider:?Silverio De MD :1935???Age:88 Y???Sex:Female D ate:05/07/2024 Address:[address] [place] [address] , [facility], [id number] Subjective: * Chief Complaints: * ???1. PH/TCM. 2. Accompanied by daughter. * HPI: ???Symptom(s):?patient is a 88 yo [facility] summary has been reviewed and dmedications reconcilled, was transfused and is feeling better. * ROS:?General/Constitutional:?Denies?Chills.?Denies?Fatigue.?Denies?Fever.?Denies?Headache.?ENT:?Patient denies?decreased sense of smell, any loss of taste, sore throat.?Denies?Sore throat.?Respiratory:?Denies?Cough.?Denies?Shortness of breath at rest.?Denies?Shortness of breath with exertion.?Gastrointestinal:?Denies?Diarrhea.?Denies?Nausea.? * Medical History:?Non hodgkin s lymphoma, Stent(bare metal), Have discussed the shingles vaccine, Refuses colonoscopy - 2013. * Medications:?Taking Ferrous Sulfate Iron , Taking Ocuvite Eye + Multi - Tablet [...] * Allergies:?N.K.D.A. Objective: * Vitals:?Ht: 62.5, Wt: 166, B WI:29.87, BP:142/70, Wt-k.3. weight is down 3 pounds since 05-01-24. * Examination: ???General Examination: ?GENERAL APPEARANCE:?alert, well hydrated, in no distress.?HEAD:?normocephalic.?SKIN:?good turgor.?HEART:?irregularly irregular rhythm.?LUNGS:?no wheezes, rales, rhonchi, good air movement, clear to auscultation bilaterally.? Assessment: * Assessment: 1.?Iron deficiency anemia - D50.9 (Primary)??? Plan: * Treatment: * Procedure Codes:?55148 VENIP UNCT, ROUTINE* * Follow Up:?2 Months * * The named appointment provid er may or may not be the originator of this progress note, and it is not deemed complete until electronically signed by the appointment provider. Sign off status: Pending * Provider:?Silverio De MD Date:?0 05/07/2024 Generated for Isa phillips/Bernice/eTransmitting on:?05/07/2024 03:11 PM EST History and Physical Notes * HPI (History of Present Illness) Category Sub-Category Detail Notes Category Not es Symptom(s) patient is a 88 yo female here for follow up of hosptial. discharge summary has been reviewed and dmedications reconcilled, was transfused and is feeling better. Examination Category Sub-Category Detail Notes Category Not es General Examination GENERAL APPEARANCE: alert, w ell hydrated, in no distress HEAD: normocephalic HEART: irregularly irregula r rhythm LUNGS: no wheezes, rales, r honchi, good air movement, clear to auscultation bilaterally SKIN: good turgor
--- OUTSIDE RECORDS SUMMARY | 2024-05-07 15:11 | XMS_ITS ---
Author Organization Silverio De MD Address [address] [place], [place] [id number] Care Team Providers Care Food Service Hotel Runner Name Role Phone Silverio De Primary Care Provider Allergies No Known Allergies Results Component Value Reference Range Notes Complete Blood Count Auto Di ff Reviewed date:05/01/2024 12:50:44 PM Interpretation: Performing Lab:[facility], [address] [place] [phone] Notes/Report: White Blood Count 5.1 4.8-10.8 X10*3/uL [...] NRBC Abs Auto 0.000 0.0-0.012 X10*3/uL Comprehensive [place]. Panel Fa st Reviewed date:05/01/2024 02:51:38 PM Interpretation: Performing Lab:[address] [phone] Notes/Report: Sodium 137 135-145 mmol/L Potassium 4.6 [...] 53 39-117 U/L TSH reflex Free T4 Reviewed date:05/01/2024 02:51:23 PM Interpretation: Performing Lab:[address], [place] [address] Notes/Report: TSH reflex Free T4 1.69 0.32-4.0 uIU/mL Reason For Referral Reason please blu guillermo [...] Blood pressure systolic 112 mm Hg 05/01/19 Blood pressure diastolic 70 mm Hg Height 62.5 in 05/01/2024 Weight 169 lbs 05/01/2024 BMI 30.41 kg/m2 05/01/2024 weight is down 3 pounds [facility] e 03-30-24 Encounters Encounter Location Date Provider Diagnosis Silverio De MD [address] [facility] [address] [place], [place] [phone] 05/01/2024 Silverio De Heart murmur R01.1 ; Post herpetic neuralgia B02.29 ; Acquired hypothyroidism E03.9 and Weakness R53.1 Assessments Encounter Date Diagnosis (ICD Code) Assessment Notes Treatment Notes Treatment Clinical Notes Section Notes 05/01/2024 Heart murmur (ICD-10 - R01.1) needs to get back to cardiology refrral back to dr guillen, pending multiple labs 05/01/2024 Post herpetic neuralgia (ICD-10 - B02.29) has been there for many years, will continue to observe 05/01/2024 Acquired hypothyroidism (ICD-10 - E03.9) on very low dose thyroid and she thinks it causes her dzziness so will stop and will cntoinue to monitor 05/01/2024 Weakness (ICD-10 - R53.1) 05/01/2024 Other rate well controlled, will continue current regiment Plan Of Treatment Treatment Notes Assessment Notes Heart murmur needs to get back to cardiology refrral back to dr guillen, pending multiple labs Post herpetic neuralgia has been there f or many years, will continue to observe Acquired hypothyroidism on very low dose thyroid and she thinks it causes her dzziness so will stop and will cntoinue to monitor Other rate well controlled , will continue current regiment Future Test Test Name Order Date TSH reflex Free T4 06/29/2024 Referrals Referral Date Details 05/01/2024 05/01/2024, please e vasyl and treatSam Next Appt Details Follow Up: 2 Months, Reason: Provider Name:Silverio scherer, 06/18/2024 07:45:00 AM, [address] [facility] [address], [address], [place], [place], [phone], Provider Name:Silverio scherer, 06/29/2024 10:15:00 AM, [address], [address], [place], [place], [phone], Provider Name:Silverio Harvey gilmer, 07/19/2024 07:00:00 AM, [address], [address], [place], [phone], Provider Name:Silverio Harvey gilmer, 07/26/2024 10:15:00 AM, [address], [address], [place], [phone], Progress Notes * Izabel RUELAS MDOB:[birth year] (88 yo F)Acc No.[id number]:05/01/2024 Progress Notes Patient:?Izabel RUELAS M Provider:?Silverio De MD :1935???Age:88 Y???Sex:Female D ate:05/01/2024 Address: [address], [facility] Subjective: * Chief Complaints: * ???DIZZY SPELLS and SOBPatie nt had stopped her Levothyroxine * HPI: ???Fall Risk:?History?Have you had any falls with injury in the past year??Yes tripped on her walker coming out of the bathroom landed face down , no ER visit.?Symptom(s):?patient is a 88 yo female here with complaints of dizzy spells and SOB, stopped taking the thyroid med in january and daughter put her back on it in april. feels [...] TAKE 1 TABLET BY MOUTH EVERY DAY Nitrostat 0.4 MG Tablet Sublingual as directed Sublingual every 5 mins times 3 for chest pain Omeprazole 20 MG Capsule Delayed Release TAKE 1 CAPSULE BY MOUTH EVERY DAY amLODIPine Besylate 10 MG Tablet TAKE 1 TABLET BY MOUTH EVERY DAY tiZANidine HCl 2 MG Tablet 1 tablet at bedtime as needed Orally Once a day Valsartan 320 MG Tablet TAKE 1 TABLET BY MOUTH EVERY DAY Eliquis 5 MG Tablet as directed Orally Twice a day Taking Ocuvite Eye + Multi - Tablet [...] 1 TABLET BY MOUTH EVERY DAY Taking Nitrostat 0.4 MG Tablet Sublingual as directed Sublingual every 5 mins times 3 for chest pain Taking Omeprazole 20 MG Capsule Delayed Release TAKE 1 CAPSULE BY MOUTH EVERY DAY Taking amLODIPine Besylate 10 MG Tablet TAKE 1 TABLET BY MOUTH EVERY DAY Taking tiZANidine HCl 2 MG Tablet 1 tablet at bedtime as needed Orally Once a day Taking Valsartan 320 MG Tablet TAKE 1 TABLET BY MOUTH EVERY DAY Taking Eliquis 5 MG Tablet as directed Orally Twice a day Not-Taking/PRNtraMADol HCl 50 MG Tablet 1 tablet as needed Orally every 8 hours as needed Furosemide 20 MG Tablet 1 tablet Orally [...] List reviewed and reconciled with the patientNot-Taking/PRN traMADol HCl 50 MG Tablet 1 tablet as needed Orally every 8 hours as needed Not-Taking/PRN Furosemide 20 MG Tablet 1 tablet [...] gies Verified] Objective: * Vitals:?Ht: 62.5, Wt: 169, B AL:30.41, BP:112/70, Wt-k.66. weight is down 3 pounds since 03-30-24. * Examination: ???General Examination: ?GENERAL APPEARANCE:?alert, well hydrated, in no distress.?HEAD:?normocephalic.?SKIN:?good turgor.?HEART:?grade 3/6 systolic murmur at left sternal border with irregular pulse and rate 80.?LUNGS:?no wheezes, rales, rhonchi, good air movement, clear to auscultation bilaterally.? Assessment: * Assessment: 1.?Heart murmur - R01.1 (Meryl bashir)???2.?Post herpetic neuralgia - B02.29???3.?Acquired hypothyroidism - E03.9???4.?Weakness - R53.1??? Plan: * Treatment: 2.?Post herpetic neuralgia? Notes: has been there for many years, will continue to observe?? 3.?Acquired hypothyroidism? Notes: on very low dose thyroid and she thinks it causes her dzziness so will stop and will cntoinue to monitor?? 4.?Others? Notes: rate well controlled, will continue current regiment? Referral To:Sam Guillen??Cardiovascular Disease ?Reason:please eval and treat * Procedure Codes:?79627 VENIP UNCT, ROUTINE* * Follow Up:?2 Months * * Sign off status: Completed true * Provider:?Silverio De MD Date:?0 05/01/2024 Generated for Isa phillips/Bernice/eTsaimasmitting on:?05/07/2024 03:11 PM EST History and Physical Notes * HPI (History of Present Illness) Category Sub-Category Detail Notes Category Not es Symptom(s) patient is a 88 yo female here with complaints of dizzy spells and SOB, stopped taking the thyroid med in january and daughter put her back on it in april. feels [...]
--- OUTSIDE RECORDS SUMMARY | 2024-05-07 15:12 | XMS_ITS ---
Author Organization Silverio De MD Address [address] [facility] [address] [place] [phone] Care Team Providers Care Fabricator Assembler Metal Products Name Role Phone Silverio De Primary Care Provider REASON FOR VISIT Discharge summary rec'd Encounters Encounter Location Date Provider Diagnosis Silverio De MD [address] [place] [address] [address] [place] [phone] 05/03/2024 Silverio De Plan Of Treatment Next Appt Details Provider Name:Silverio scherer, 06/18/2024 07:45:00 AM, [address] [place] [address], [address], [phone], Provider Name:Silverio scherer, 06/29/2024 10:15:00 AM, [address] [place] [address], [address], [phone], Provider Name:Silverio scherer, 07/19/2024 07:00:00 AM, [address] [place] [address], [address], [phone], Provider Name:Silverio scherer, 07/26/2024 10:15:00 AM, [address] [place] [address], [phone], Progress Notes * zIabel RUELAS MDOB:[birth year] (88 yo F)Acc No.[id number]:05/03/2024 Patient:?JENNIFER, Izabel Nathaniel :1935???Age:88 Y???Sex:Female Address:[address] [place], [place] [address], [facility] [place] [address] * true * Date:? Generated for Isa phillips/Bernice/eTransmitting on:?05/07/2024 03:11 PM EST
== END 2024-05-07 12:58 | disposition home or self-care (01) ==
LOC: HO.LNP 12:57
PROVIDERS: Visit Provider Internal Medicine
DX: D50.9 Iron deficiency anemia, unspecified (principal)
CPT/HCPCS: 85025

== ENCOUNTER 2024-05-08 12:36 | Outpatient (AMB) | payer MEDICARE, SELFPAY ==
--- NOTE | 2024-05-08 12:42 | MHC.OFFVIS ---
Vital Signs 05/08/24 12:45 Height 5 ft 2 in Weight 165 lb 5.547 oz BMI 30.2 BP 130/78 Blood Pressure Location Lt brachial Position Sitting Intake Visit Reasons: overdue follow up Intake Note: Overdue follow-up was in [facility] last week for low blood count c/o fatigue Automatic Folder Seamer Required: No Allergies No Known Allergies [No Known Allergies*] Allergy (Verified 12/28/21 10:33) Adhesive Bandages Allergy (Unknown, Uncoded 12/28/21 10:33) rash Medication List - Last Reconciled 05/08/24 by Sam Guillen MD amlodipine 10 mg PO DAILY apixaban (Eliquis) 5 mg PO BID atorvastatin 40 mg PO BEDTIME nitroglycerin 0.4 mg sublingual omeprazole 20 mg PO DAILY tizanidine 4 mg PO BEDTIME PRN valsartan 40 mg PO DAILY HPI Comments Details: Izabel comes for follow-up accompanied by her daughter. She was recently at [facility] after she was noted to be significantly anemic. This was new finding. She was getting symptoms of exertional shortness of breath and dizziness and was napping a lot. She subsequently had a visit with you and which time a CBC was drawn she was noted to have significantly dropped hemoglobin and was subsequently transferred and advised to go to the emergency room. In the emergency room she was noted to have a hemoglobin of 7 and was given a blood transfusion. There was no overt signs of bleeding and was seen by GI evaluation and recommended colonoscopy although patient declined. She says she has not noted any black stools or red stools. She does have issues with memory. Her Eliquis was stopped for 1 day and then subsequently restarted. Since then she has not had any overt bleeding again. She was no other cardiac symptoms. Continues to have chronic exertional shortness of breath. No chest pain, lightheadedness, syncope. She has short-term memory issues. No falls. No clear orthopnea, PND. [facility] Medical History Aortic stenosis Hyperlipidemia Obesity (BMI 30-39.9) HTN (hypertension) CAD (coronary artery disease) Chronic a-fib Surgical History Stented coronary artery Hx of cardiac cath History of cardioversion Family History Father CVD (cardiovascular disease) Mother Cancer Diabetes Family/Other Cancer Review of Systems Const Denies chills, Denies fatigue, Denies fever(s), Denies frequent falls, Denies weakness, Denies weight gain and Denies weight loss ENT Denies dizziness Card Denies chest pain, Denies leg edema, Denies lightheadedness, Denies palpitations, Denies dyspnea, Denies dyspnea on exertion, Denies orthopnea and Denies other (loss of consciousness) Resp Denies cough, Denies dyspnea and Denies dyspnea on exertion GI Denies hematochezia and Denies change in stool character Musc Denies abnormal gait, Denies muscle weakness, Denies numbness, Denies radiating pain into limb and Denies tingling Neuro Denies abnormal gait, Denies dizziness, Denies frequent falls, Denies numbness, Denies tingling and Denies weakness Endo Denies fatigue and Denies palpitations Physical Exam Vital Signs: Last Vital Signs BP 130/78 05/08/24 12:45 BMI result Body Mass Index 30.2 Const General: cooperative, comfortable, no acute distress, alert, awake, well groomed and other (Positive pallor) Nutritional Appearance: overweight Limitations: no limitations and ambulation with cane Neck Neck: Yes trachea midline, Yes supple and Yes no JVD Resp Effort & Inspection: normal respiratory effort Auscultation: clear to auscultation bilaterally Cardio Jugular venous distension: no JVD Rhythm: abnormal rhythm irregularly irregular Heart sounds: S1 normal heart sound present, S2 normal heart sound present and Murmur heart sound present systolic mid, decrescendo, crescendo and soft GI Auscultation: normal bowel sounds Skin General skin exam: no rashes or lesions noted Neuro General: no focal motor deficits Extrem General: Yes no clubbing, cyanosis or edema, Yes pedal edema and Yes other (Bilateral varicosities) Psych Appearance: grossly normal Assessment & Plan Assessment & Plan (1) Chronic a-fib: Code(s): I48.20 - Chronic atrial fibrillation, unspecified Category: Medical Plan: Chronic rate control atrial fibrillation on oral anticoagulation therapy with Eliquis. Recently noted to be significantly anemic, suspicion is GI blood loss although she had no evidence of active GI bleeding when she presented emergency room. She did receive blood transfusion and is symptomatically much better since blood transfusion. Hemoglobin is around 9 at this point in time. Plan is to continue to monitor hemoglobin regularly and be on iron therapy. I have suggested if there is definitely a source of bleeding and Eliquis might be a culprit she may need an alternative strategy and/or workup. However she declines to undergo any form of GI workup at this point time. If she continues to have recurrent anemia we may have to consider alternative to Eliquis such as Watchman device. This was discussed with the daughter. Patient was not very interested in hearing any further treatment plan. For now will continue Eliquis therapy unless she was recurrent significant anemia at which time Eliquis might have to be stopped. (2) CAD (coronary artery disease): Code(s): I25.10 - Atherosclerotic heart disease of [place] coronary artery without angina pectoris Category: Medical Plan: CAD which appears to be stable with remote history of stenting with no current symptoms suggestive of angina. At this point time continue aggressive medical therapy. Currently on full oral anticoagulation Eliquis and would avoid aspirin therapy especially given anemia. Continue high-intensity statin therapy. Continue amlodipine therapy. Heart rate is well controlled despite of being all rate lowering medications. (3) Aortic stenosis: Code(s): I35.0 - Nonrheumatic aortic (valve) stenosis Category: Medical Plan: Aortic stenosis which is moderate by echocardiogram 2 years ago. However at this point time patient does not want any further aggressive management plan. Will follow with echocardiogram in few months time to assess for aortic stenosis progression. This may explain some of her symptoms of worsening shortness of breath lightheadedness with anemia. Will follow with her in 6 months, sooner p.r.n.. Thank you for allowing me to partake in his care Coding Level of Care Code Est Pt Level 4 (51983) Complex EM visit Add On G2211 Diagnoses Chronic a-fib I48.20 CAD (coronary artery disease) I25.10 Aortic stenosis I35.0
[2024-05-08 12:45] VITALS: BP 130/78; BMI 30.2
--- OUTSIDE RECORDS SUMMARY | 2024-05-08 15:40 | XMS_ITS ---
Author Organization Silverio De MD Address [address] [place], [place] [phone] Care Team Providers Care Hearing Aid Consultant Name Role Phone Silverio De Primary Care Provider Allergies No Known Allergies Results Component Value Reference Range Notes Complete Blood Count Auto Di ff Reviewed date:05/01/2024 12:50:44 PM Interpretation: Performing Lab:[facility], [address] [place] [phone] Notes/Report: White Blood Count 5.1 4.8-10.8 X10*3/uL [...] NRBC Abs Auto 0.000 0.0-0.012 X10*3/uL Comprehensive [place]. Panel Fa st Reviewed date:05/01/2024 02:51:38 PM Interpretation: Performing Lab:[address] [phone] Notes/Report: Sodium 137 135-145 mmol/L Potassium 4.6 [...] T4 Reviewed date:05/01/2024 02:51:23 PM Interpretation: Performing Lab:[address], [place] [address] Notes/Report: TSH reflex Free T4 1.69 0.32-4.0 [...] kg/m2 05/01/2024 weight is down 3 pounds [facility] e 03-30-24 Encounters Encounter Location Date Provider Diagnosis Silverio De MD [address] [place], [place] [phone] 05/01/2024 Silverio De Heart murmur R01.1 ; [...] Provider Name:Silverio scherer, 06/18/2024 07:45:00 AM, [address], [address], [place], [place], [phone], Provider Name:Silverio scherer, 06/29/2024 10:15:00 AM, [address], [address], [place], [place], [phone], Provider Name:Silverio Harvey gilmer, 07/19/2024 07:00:00 AM, [address], [address], [place], [phone], Provider Name:Silverio Harvey gilmer, 07/26/2024 10:15:00 AM, [address], [address], [place], [phone], Progress Notes * Izabel RUELAS MDOB:[birth year] (88 yo F)Acc No.[id number]:05/01/2024 Progress Notes Patient:?Izabel RUELAS M Provider:?Silverio De MD :1935???Age:88 Y???Sex:Female D ate:05/01/2024 Address: [address], [facility] Subjective: * Chief Complaints: * ???DIZZY SPELLS [...] Objective: * Vitals:?Ht: 62.5, Wt: 169, B OK:30.41, BP:112/70, Wt-k.66. weight is down 3 pounds [...] Disease ?Reason:please eval and treat * Procedure Codes:?98255 VENIP UNCT, ROUTINE* * Follow Up:?2 Months * * Sign off status: Completed true * Provider:?Silverio De MD Date:?0 05/01/2024 Generated for Isa phillips/Bernice/eTsaimasmitting on:?05/08/2024 03:40 PM EST History and Physical Notes * [...]
--- OUTSIDE RECORDS SUMMARY | 2024-05-08 15:40 | XMS_ITS ---
Author Organization Silverio De MD Address [address] [facility] [address] [place] [phone] Care Team Providers Care Chief Scientific Officer Name Role Phone Silverio De Primary Care Provider [phone] REASON FOR VISIT Discharge summary rec'd Encounters Encounter Location Date Provider Diagnosis Silverio De MD [address] [place] [address] [address] [place] [phone] 05/03/2024 Silverio De Plan Of Treatment Next Appt Details Provider Name:Silverio scherer, 06/18/2024 07:45:00 AM, [address] [place] [address], [address], [phone], Provider Name:Silverio scherer, 06/29/2024 10:15:00 AM, [address] [place] [address], [address], [phone], Provider Name:Silverio scherer, 07/19/2024 07:00:00 AM, [address] [place] [address], [address], [phone], Provider Name:Silverio scherer, 07/26/2024 10:15:00 AM, [address] [place] [address], [phone], Progress Notes * Izabel RUELAS MDOB:[birth year] (88 yo F)Acc No.[id number]:05/03/2024 Patient:?JENNIFERGuillermoce Nathaneil :1935???Age:88 Y???Sex:Female [facility] [place] [address] * true * Date:? Generated for Isa phillips/Bernice/eTransmitting on:?05/08/2024 03:40 PM EST
--- OUTSIDE RECORDS SUMMARY | 2024-05-08 15:40 | XMS_ITS ---
Author Organization Silverio De MD Address [address] [place], [place] [phone] Care Team Providers Care Livestock Dealer Name Role Phone Silverio De Primary Care Provider Allergies No Known Allergies Results Component Value Reference Range Notes Complete Blood Count Auto Di ff Reviewed date:05/07/2024 04:04:57 PM Interpretation: Performing Lab:[facility], [address] [place] [phone] Notes/Report: White Blood Count 5.3 4.8-10.8 X10*3/uL [...] Status Risk Notes Problem Iron deficiency anemia (96409973) Iron deficiency anemia (D50.9) Active confirmed Vital Signs Blood pressure systolic 142 mm Hg 05/08/19 25 Blood pressure diastolic 70 mm Hg 025 Height 62.5 in 05/07/2024 Weight 166 lbs 05/07/2024 BMI 29.87 kg/m2 05/07/2024 weight is down 3 pounds [facility] e 05-01-24 Encounters Encounter Location Date Provider Diagnosis Silverio De MD [address] [place] [phone] 05/07/2024 Silverio eD Iron deficiency anemia D50.9 Assessments Encounter Date Diagnosis (ICD Code) Assessment Notes Treatment Notes Treatment Clinical Notes Section Notes 05/07/2024 Iron deficiency anemia (ICD-10 - D50.9) says she would not undergo a colonoscopy Plan Of Treatment Treatment Notes Assessment Notes Iron deficiency anemia says she would no t undergo a colonoscopy Future Test Test Name Order Date Complete Blood Count Auto Diff IRON PROFILE 06/18/2024 Next Appt Details Follow Up: 2 Months, Reason: Provider Name:Silverio scherer, 06/18/2024 07:45:00 AM, [address] [place] [address], [phone], Provider Name:Silverio scherer, 06/29/2024 10:15:00 AM, [address] [place] [address], [phone], Provider Name:Silverio scherer, 07/19/2024 07:00:00 AM, [address] [place] [address], [phone], Provider Name:Silverio scherer, 07/26/2024 10:15:00 AM, [address] [place] [address], [phone], Progress Notes * Izabel RUELAS MDOB:[birth year] (88 yo F)Acc No.[id number]:05/07/2024 Patient:?Izabel RUELAS Provider:?Silverio De MD :1935???Age:88 Y???Sex:Female D ate:05/07/2024 Address:[address] [place] [address] [facility] Subjective: * Chief Complaints: * ???1. PH/TCM. 2. Accompanied by daughter. * HPI: ???Symptom(s):?patient is a 88 [facility] discharge summary has been reviewed and medications reconcilled, was transfused and is feeling better. [...] Objective: * Vitals:?Ht: 62.5, Wt: 166, B IA:29.87, BP:142/70, Wt-k.3. weight is down 3 pounds since 05-01-24. * Examination: ???General Examination: ?GENERAL APPEARANCE:?alert, well hydrated, in no distress.?HEAD:?normocephalic.?SKIN:?good turgor.?HEART:?irregularly irregular rhythm.?LUNGS:?no wheezes, rales, rhonchi, good air movement, clear to auscultation bilaterally.? Assessment: * Assessment: 1.?Iron deficiency anemia - D50.9 (Primary)??? Plan: * Treatment: * Procedure Codes:?98284 VENIP UNCT, ROUTINE* * Follow Up:?2 Months * * The named appointment provid er may or may not be the originator of this progress note, and it is not deemed complete until electronically signed by the appointment provider. Sign off status: Pending * Provider:?Silverio De MD Date:?0 05/07/2024 Generated for Isa phillips/Bernice/eTransmitting on:?05/08/2024 03:39 PM EST History and Physical Notes * HPI (History of Present Illness) Category Sub-Category Detail Notes Category Not es Symptom(s) patient is a 88 yo female here for follow up of hosptial. discharge summary has been reviewed and medications reconcilled, was transfused and is feeling better. Examination Category Sub-Category Detail Notes Category Not es General Examination GENERAL APPEARANCE: alert, w ell hydrated, in no distress HEAD: normocephalic HEART: irregularly irregula r rhythm LUNGS: no wheezes, rales, r honchi, good air movement, clear to auscultation bilaterally SKIN: good turgor
== END 2024-05-08 13:25 | disposition home or self-care (01) ==
PROVIDERS: PCP Internal Medicine; Visit Provider Internal Medicine Cardiovascular Disease
DX: I48.20 Chronic atrial fibrillation, unspecified (principal); I25.10 Atherosclerotic heart disease of native coronary artery without angina pectoris; I35.0 Nonrheumatic aortic (valve) stenosis
CPT/HCPCS: 99214; G2211

== ENCOUNTER → 2024-05-08 12:36 | Outpatient (BNVA) | payer MEDICARE, SELFPAY | PROVIDERS: PCP Internal Medicine; Visit Provider Internal Medicine Cardiovascular Disease | DX: I48.20 Chronic atrial fibrillation, unspecified (principal); I25.10 Atherosclerotic heart disease of native coronary artery without angina pectoris; I35.0 Nonrheumatic aortic (valve) stenosis | CPT/HCPCS: 99212 ==

== ENCOUNTER 2024-06-18 07:59 | Outpatient (REF) | payer MEDICARE, SELFPAY ==
[2024-06-18 11:36] LABS: MANUAL DIFF FLAG NO
[2024-06-18 11:39] LABS: Basophils Percent Auto 0.6 % (0-2); Eosinophils Absolute Auto 0.1 X10*3/uL (0.0-0.4); Eosinophils Percent Auto 1.2 % (0-4); Hematocrit 37.5 % (37.0-47.0); Hemoglobin 12.1 g/dl (12.0-16.0); Imm Gran Abs Auto 0.02 X10*3/uL (0.00-0.03); Imm Gran Pct Auto 0.3 % (0.0-0.4); Lymphocytes Absolute Auto 2.2 X10*3/uL (1.2-4.9); Lymphocytes Percent Auto 33.5 % (20-40); Mean Corpuscular HGB Conc 32.3 g/dl (31.0-35.0); Mean Corpuscular Hemoglobin 28.9 pg (27.0-33.0); Mean Corpuscular Volume 89.5 fL (80.0-98.0); Mean Platelet Volume 10.1 fL (9.4-12.3); Monocytes Absolute Auto 0.6 X10*3/uL (0.1-1.2); Monocytes Percent Auto 8.9 % (2-11); Neutrophils Absolute Auto 3.6 x10*3/uL (2.0-8.3); Neutrophils Percent Auto 55.5 % (45-73); Platelet Count 240 X10*3/uL (160-400); Red Blood Count 4.19 X10*6/uL (4.20-5.50); Red Cell Distribution Width 21.1 % (11.0-16.0); White Blood Count 6.5 X10*3/uL (4.8-10.8)
[2024-06-18 11:54] LABS: Iron 53 mcg/dL (30-160); Percent Iron Saturation 16 % (15-50); Total Iron Binding Capacity 338 mcg/dL (228-428); Unsaturated Iron Binding 285 ug/dL
[2024-06-18 12:09] LABS: TSH reflex Free T4 1.33 uIU/mL (0.32-4.0)
== END 2024-06-18 08:00 | disposition home or self-care (01) ==
LOC: HO.WFDLDS 07:59
PROVIDERS: Visit Provider Internal Medicine
DX: E03.9 Hypothyroidism, unspecified (principal); D50.9 Iron deficiency anemia, unspecified
CPT/HCPCS: 36415; 83540; 84443; 85025

== ENCOUNTER → 2024-09-10 10:49 | Outpatient (REF) | payer MEDICARE, SELFPAY ==
--- OUTSIDE RECORDS SUMMARY | 2024-05-30 03:18 | XMS_ITS ---
Author Organization Silverio De MD Address [address] [place] [phone] Care Team Providers Care Spray Gun Striper Name Role Phone Silverio De Primary Care Provider REASON FOR VISIT New Refill Request Medications Medication SIG (Take, Route, Fr equency, Duration) Notes Start Date End Date Status Ferrous Sulfate Iron Active Encounters Encounter Location Date Provider Diagnosis Silverio De MD [address] [place] [phone] 05/30/2024 Silverio De Iron deficiency anemia D50.9 Assessments Encounter Date Diagnosis (ICD Code) Assessment Notes Treatment Notes Treatment Clinical Notes Section Notes 05/30/2024 Iron deficiency anemia (ICD-10 - D50.9) Plan Of Treatment Medication Medication Name Sig Start Date Stop Date Notes Ferrous Sulfate Iron Next Appt Details Provider Name:Silverio scherer, 10/16/2024 07:00:00 AM, [address] [place] [address], [address], [phone], Provider Name:Silverio scherer, 10/23/2024 09:30:00 AM, [address] [place] [address], [address], [phone], Progress Notes * Izabel RUELAS MDOB:[birth year] (88 yo F)Acc No.[id number]:05/30/2024 Patient: Izabel BROOKS :1935 A ge:88 Y S ex:Female Address:[address], [place] [address] * Refills Refill Ferrous Sulfate Iron * true * Date: Generated for Isa phillips/Bernice/Tianaitting on: 0 09/10/2024 11:45 AM EDT
--- NOTE | 2024-09-10 10:52 | CA_ITS ---
Transthoracic Echocardiogram Patient (Last, First, Middle): Izabel Ruelas M Gender: Female Date of : 1935 Age: 88 Procedure Date: 09/10/2024 Procedure Type: Transthoracic Echocardiogram Location: OP Height: 157.48 cm Weight: 69.4 kg BSA: 1.71 m2 Heart Rate: 80 bpm BP: 125 / 70 mmHg County Attorney: KRISTIE Referring MD: Sam Guillen MD Machine Feeder Raw Stock: Sam Guillen MD Symptoms: I35.0 - Nonrheumatic aortic (valve) stenosis Study Quality: Adequate ECG Rhythm: Atrial Fibrillation Conclusions: - 1. Normal LV ejection fraction of 60 65% 2. Severe biatrial enlargement 3. Moderate paradoxical low-flow aortic stenosis 4. Severe mitral calcification with mild mitral regurgitation 5. Mildly dilated ascending aorta 6. No gross pericardial effusion Findings Left Ventricle Normal left ventricular size, thickness, and systolic function. The visually estimated ejection fraction is between 60-65%. Diastolic function is indeterminate on the basis of available data. Right Ventricle Mildly increased right ventricular cavity size. There is mildly decreased right ventricular systolic function. Atria Severe biatrial enlargement. There is no evidence of interatrial shunt. Aortic Valve There is moderate calcification of the aortic valve. There is moderate aortic valve stenosis. The mean gradient is 14 mmHg. There is no aortic valve regurgitation. Dimensionless index is 0.27 more suggestive of moderate aortic stenosis. Calculated aortic valve area is lower than expected with the gradients due to measured LVOT area. However there is low stroke volume noted with overall findings suggestive of paradoxical low-flow moderate aortic stenosis Mitral Valve There is mild anterior and moderate posterior mitral leaflet thickening. There is severe mitral annular calcification. There is mild mitral valve regurgitation. There is no mitral valve stenosis. Pulmonic Valve The pulmonic valve was not well visualized. Tricuspid Valve Likely normal tricuspid valve structure and function. Mildly elevated right atrial pressure. Great Vessels The pulmonary artery was not well visualized. There is mild dilatation of the ascending aorta measuring 3.90 cm. Small plaque is seen in the sino tubular ridge. Venous The inferior vena cava is moderately dilated and collapses greater than 50% with inspiration. Pericardium/Pleural There is no evidence of pericardial effusion. Prior Study Comparison No significant change compared to prior study dated: 06/25/2022. Measurements 2D Linear Measurements IVSd: 1.00 0.6-0.9/0.6-1.0 cm LVIDd: 3.65 3.9-5.3/4.2-5.9 cm LVIDd Index: 2.13 2.4-3.2/2.2-3.1 cm/m2 LVIDs: 2.36 2.0-3.6 cm LVPWd: 0.91 0.7-1.1 cm LA Diam: 3.40 2.7-3.8/3.0-4.0 cm LAIDs Index: 1.99 1.5-2.3 cm/m2 LV Mass: 127.80 67-162/88-224 g LV Mass Index: 74.74 43-95/49-115 g/m2 LVOT Diam: 1.90 3.0+(-)1.3 cm 2D Systolic Function EF 4C: 51.90 >55% EF 2C: 64.90 >55% EF BiP: 60.30 >55% Mitral Valve MV Pk E: 0.95 MV Decel Time: 196.00 E'Lateral: 8.38 E'Medial: 6.06 E/E' Med: 15.70 E/E' Lat: 11.30 PHT: 57.00 MVA PHT: 3.86 Decel Maries: 4.91 Aortic Valve AoV Pk Alexey: 2.34 AoV Mn Alexey: 1.74 AoV VTI: 0.49 AoV Pk Grad: 22.00 Aov Mn Grad: 14.00 BLANK Cont.VTI: 0.74 LVOT LVOT Pk Alexey: 0.61 LVOT Mn Alexey: 0.43 LVOT VTI: 0.13 LVOT Pk Grad: 2.00 LVOT Mn Grad: 1.00 LVOT Diam: 1.90 LVOT Area: 2.84 Diastolic Function MV Pk E: 0.95 E'Medial: 6.06 E/E' Med: 15.70 E' Laterial: 8.38 E/E' Lat: 11.30 Right Ventricle TAPSE (mm): 15.20 TVS' Alexey: 7.61 Tricuspid Valve RA Press: 8.00 Great Vessels Aorta Sinus of Valsalva: 3.60 2.0-3.5 cm Ao Asc: 3.90 2.1-3.4 cm Ao Arch: 3.00 Pulmonary Valve PV Pk Alexey: 0.90 Peak PV Grad: 3.00 Updated in Other Vendor System with Status of Final Sam Guillen MD electronically signed on 09/11/2024 8:41:31 AM with status of Final
== END ==
LOC: HO.CARD 10:49
PROVIDERS: PCP Internal Medicine; Visit Provider Internal Medicine Cardiovascular Disease
DX: I35.0 Nonrheumatic aortic (valve) stenosis (principal)
CPT/HCPCS: 93306

== ENCOUNTER → 2024-09-10 10:52 | Outpatient (BNV) | payer MEDICARE, SELFPAY | PROVIDERS: PCP Internal Medicine; Visit Provider Internal Medicine Cardiovascular Disease | DX: I35.0 Nonrheumatic aortic (valve) stenosis (principal); I34.0 Nonrheumatic mitral (valve) insufficiency; I34.81 Nonrheumatic mitral (valve) annulus calcification; I51.7 Cardiomegaly | CPT/HCPCS: 93306 ==